=== PATIENT | female | born 1965 | race Caucasian/White ===

== ENCOUNTER → 2019-10-05 14:41 | Outpatient (BNVA) | payer MEDICARE, MEDICAID, SELFPAY | PROVIDERS: Family Provider Nurse Practitioner; PCP Nurse Practitioner; Visit Provider Nurse Practitioner Family | DX: E11.9 Type 2 diabetes mellitus without complications (principal); E78.5 Hyperlipidemia, unspecified; F17.200 Nicotine dependence, unspecified, uncomplicated; I10 Essential (primary) hypertension; J98.01 Acute bronchospasm; R30.0 Dysuria; E78.2 Mixed hyperlipidemia | CPT/HCPCS: 80053; 80061; 81003; 84443; 85025 ==

== ENCOUNTER → 2019-10-12 15:31 | Outpatient (BNVA) | payer MEDICARE, MEDICAID, SELFPAY | PROVIDERS: Family Provider Nurse Practitioner; PCP Nurse Practitioner; Visit Provider Nurse Practitioner | DX: E11.9 Type 2 diabetes mellitus without complications (principal); Z79.890 Hormone replacement therapy; L98.9 Disorder of the skin and subcutaneous tissue, unspecified | CPT/HCPCS: 83036 ==

== ENCOUNTER → 2019-10-20 15:45 | Outpatient (BNVA) | payer MEDICARE, MEDICAID, SELFPAY | PROVIDERS: Family Provider Nurse Practitioner; PCP Nurse Practitioner; Visit Provider Nurse Practitioner Psychiatric/Mental Health | DX: F33.2 Major depressive disorder, recurrent severe without psychotic features (principal); F41.0 Panic disorder [episodic paroxysmal anxiety]; F41.1 Generalized anxiety disorder | CPT/HCPCS: 99213 ==

== ENCOUNTER → 2020-01-08 08:33 | Outpatient (BNVA) | payer MEDICARE, MEDICAID, SELFPAY | PROVIDERS: Family Provider Nurse Practitioner; PCP Nurse Practitioner; Visit Provider Nurse Practitioner Psychiatric/Mental Health | DX: F33.2 Major depressive disorder, recurrent severe without psychotic features (principal); F41.0 Panic disorder [episodic paroxysmal anxiety]; F41.1 Generalized anxiety disorder | CPT/HCPCS: 99213 ==

== ENCOUNTER → 2020-02-09 12:04 | Outpatient (BNVA) | payer MEDICARE, MEDICAID, SELFPAY | PROVIDERS: Family Provider Nurse Practitioner; PCP Nurse Practitioner; Visit Provider Nurse Practitioner | DX: E11.9 Type 2 diabetes mellitus without complications (principal); I10 Essential (primary) hypertension; E78.5 Hyperlipidemia, unspecified | CPT/HCPCS: 80053; 80061; 82044; 83036 ==

== ENCOUNTER → 2020-04-10 10:51 | Outpatient (BNVA) | payer MEDICARE, MEDICAID, SELFPAY | PROVIDERS: Family Provider Nurse Practitioner; PCP Nurse Practitioner; Visit Provider Nurse Practitioner | DX: E66.01 Morbid (severe) obesity due to excess calories (principal); E11.65 Type 2 diabetes mellitus with hyperglycemia; I10 Essential (primary) hypertension; E78.5 Hyperlipidemia, unspecified; E78.2 Mixed hyperlipidemia; Z68.41 Body mass index [BMI] 40.0-44.9, adult; F17.211 Nicotine dependence, cigarettes, in remission | CPT/HCPCS: 80053; 83036 ==

== ENCOUNTER → 2020-04-23 09:20 | Outpatient (BNVA) | payer MEDICARE, MEDICAID, SELFPAY | PROVIDERS: Family Provider Nurse Practitioner; PCP Nurse Practitioner; Visit Provider Nurse Practitioner Psychiatric/Mental Health | DX: F33.2 Major depressive disorder, recurrent severe without psychotic features (principal); F41.0 Panic disorder [episodic paroxysmal anxiety]; F41.1 Generalized anxiety disorder | CPT/HCPCS: 99213 ==

== ENCOUNTER → 2020-06-20 07:25 | Outpatient (BNVA) | payer MEDICARE, MEDICAID, SELFPAY | PROVIDERS: Family Provider Nurse Practitioner; PCP Nurse Practitioner; Visit Provider Nurse Practitioner Psychiatric/Mental Health | DX: F33.2 Major depressive disorder, recurrent severe without psychotic features (principal); F41.0 Panic disorder [episodic paroxysmal anxiety]; F41.1 Generalized anxiety disorder | CPT/HCPCS: 99213 ==

== ENCOUNTER → 2020-07-02 15:15 | Outpatient (BNVA) | payer MEDICARE, MEDICAID, SELFPAY | PROVIDERS: Family Provider Nurse Practitioner; PCP Nurse Practitioner; Visit Provider Nurse Practitioner | DX: E11.65 Type 2 diabetes mellitus with hyperglycemia (principal); J98.01 Acute bronchospasm; E78.2 Mixed hyperlipidemia; R00.2 Palpitations; E66.01 Morbid (severe) obesity due to excess calories | CPT/HCPCS: 80053; 80061; 83036; 84443 ==

== ENCOUNTER → 2020-08-07 14:32 | Outpatient (BNVA) | payer MEDICARE, MEDICAID, SELFPAY | PROVIDERS: Family Provider Nurse Practitioner; PCP Nurse Practitioner; Visit Provider Nurse Practitioner Family | DX: Z20.828 Contact with and (suspected) exposure to other viral communicable diseases (principal) | CPT/HCPCS: 87635 ==

== ENCOUNTER → 2020-09-16 14:08 | Outpatient (BNVA) | payer MEDICARE, MEDICAID, SELFPAY | PROVIDERS: Family Provider Nurse Practitioner; PCP Nurse Practitioner; Visit Provider Nurse Practitioner | DX: E11.65 Type 2 diabetes mellitus with hyperglycemia (principal); J98.01 Acute bronchospasm; E78.2 Mixed hyperlipidemia; I10 Essential (primary) hypertension; R00.2 Palpitations; E66.01 Morbid (severe) obesity due to excess calories | CPT/HCPCS: 80053; 81000; 83036; 85025 ==

== ENCOUNTER → 2020-10-01 09:40 | Outpatient (BNVA) | payer MEDICARE, MEDICAID, SELFPAY | PROVIDERS: Family Provider Nurse Practitioner; PCP Nurse Practitioner; Visit Provider Nurse Practitioner Psychiatric/Mental Health | DX: F33.2 Major depressive disorder, recurrent severe without psychotic features (principal); F41.0 Panic disorder [episodic paroxysmal anxiety]; F41.1 Generalized anxiety disorder | CPT/HCPCS: 99214 ==

== ENCOUNTER → 2021-01-01 11:35 | Outpatient (BNVA) | payer MEDICARE, MEDICAID, SELFPAY | PROVIDERS: Family Provider Nurse Practitioner; PCP Nurse Practitioner; Visit Provider Nurse Practitioner | DX: E11.65 Type 2 diabetes mellitus with hyperglycemia (principal); E78.2 Mixed hyperlipidemia; I10 Essential (primary) hypertension; M77.8 Other enthesopathies, not elsewhere classified | CPT/HCPCS: 73030; 80053; 80061; 83036; 85025 ==

== ENCOUNTER → 2021-02-17 08:37 | Outpatient (BNVA) | payer MEDICARE, MEDICAID, SELFPAY | PROVIDERS: Family Provider Nurse Practitioner; PCP Nurse Practitioner; Visit Provider Specialist | DX: M25.511 Pain in right shoulder (principal); M77.8 Other enthesopathies, not elsewhere classified | CPT/HCPCS: 73030 ==

== ENCOUNTER → 2021-02-25 07:22 | Outpatient (BNVA) | payer MEDICARE, MEDICAID, SELFPAY | PROVIDERS: Family Provider Nurse Practitioner; PCP Nurse Practitioner; Visit Provider Nurse Practitioner Psychiatric/Mental Health | DX: F33.2 Major depressive disorder, recurrent severe without psychotic features (principal); F41.0 Panic disorder [episodic paroxysmal anxiety]; F41.1 Generalized anxiety disorder | CPT/HCPCS: 99214 ==

== ENCOUNTER 2021-02-27 16:49 | Outpatient (CLI) | payer MEDICARE, MEDICAID, SELFPAY ==
--- NOTE | 2021-02-27 17:30 | MR_ITS ---
WS: [id number] MRI RIGHT SHOULDER HISTORY: M19.011 - Primary osteoarthritis, right shoulder COMPARISON: Radiographs 02/17/2021 TECHNIQUE: Multiplanar sequences of the shoulder joint are submitted. Severe AC joint arthritis. Significant osteophytosis and hypertrophic bone formation from the clavicl e and AC joint. There is an osteophyte with significant encroachment upon the anterior supraspinatus muscle causing deformity. Small amount increased signal through the AC ligament. Small amount of flui d in the subacromial and subdeltoid bursa. No os acromion. Biceps tendon remains in normal position w ith very slight increased amount of fluid within the tendon sheath. Mild atrophy without edema involving the supraspinatus muscle. Moderate-sized insertion site tear inv olving the anterior most supraspinatus tendon near the rotator cuff interval. There is additional ten dinopathy. Surface of the supraspinatus tendon is frayed along the bursal and articular surfaces. Infraspinatus and subscapularis tendons are intact. Mild narrowing of the glenohumeral joint. Loss of cartilage involving the glenoid. Additional cortica l irregularity and loss of cartilage over the humeral head. Intrasubstance degeneration and fraying i nvolving the superior labrum. MR/MR shoulder RT wo con* [id number] IMPRESSION: 1. Severe AC joint arthritis with osteophyte and soft tissue encroachment and displacement upon the supraspinatus muscle and tendon. 2. Mild supraspinatus atrophy without edema. 3. Insertion site tear of the supraspinatus muscle with additional tendinopath y. Tear is along the anterior most supraspinatus tendon and may extend into the rotator cuff interval. 4. Loss of cartilage and cortical irregularity involving the humeral head and glenoid.
== END 2021-02-27 16:50 | disposition home or self-care (01) ==
LOC: RADSHAW 16:56
PROVIDERS: PCP Nurse Practitioner; Visit Provider Specialist
DX: M19.011 Primary osteoarthritis, right shoulder (principal); M25.711 Osteophyte, right shoulder; M75.101 Unspecified rotator cuff tear or rupture of right shoulder, not specified as traumatic
CPT/HCPCS: 73221

== ENCOUNTER → 2021-03-24 14:39 | Outpatient (BNVA) | payer MEDICARE, MEDICAID, SELFPAY | PROVIDERS: PCP Nurse Practitioner; Visit Provider Nurse Practitioner | DX: R82.90 Unspecified abnormal findings in urine (principal); E66.9 Obesity, unspecified; Z11.3 Encounter for screening for infections with a predominantly sexual mode of transmission | CPT/HCPCS: 81000; 87086; 87491; 87591 ==

== ENCOUNTER → 2021-04-07 14:56 | Outpatient (BNVA) | payer MEDICARE, MEDICAID, SELFPAY | PROVIDERS: PCP Nurse Practitioner; Visit Provider Obstetrics & Gynecology | DX: Z12.4 Encounter for screening for malignant neoplasm of cervix (principal); R19.09 Other intra-abdominal and pelvic swelling, mass and lump; N81.4 Uterovaginal prolapse, unspecified | CPT/HCPCS: 88175 ==

== ENCOUNTER → 2021-04-08 10:13 | Outpatient (BNVA) | payer MEDICARE, MEDICAID, SELFPAY | PROVIDERS: PCP Nurse Practitioner; Visit Provider Specialist | DX: R20.0 Anesthesia of skin (principal); R20.2 Paresthesia of skin; Z87.891 Personal history of nicotine dependence | CPT/HCPCS: 95908 ==

== ENCOUNTER 2021-04-09 12:19 | Outpatient (CLI) | payer MEDICARE, MEDICAID, SELFPAY ==
--- NOTE | 2021-04-09 12:45 | US_ITS ---
WS: [id number] ULTRASOUND SOFT TISSUES LEFT groin HISTORY: R19.09 - Other intra-abdominal and pelvic swelling, mass ... COMPARISON: None available. TECHNIQUE: 2-D and color Doppler imaging is submitted. Palpable area in the LEFT groin corresponds to marked decreased echogenic nodules. There are 2 adjace nt anechoic nodules with the largest measuring 0.9 x 0.6 x 0.8 cm. No through-transmission but there is also no increased vascularity. These could be cystic changes within an abnormal lymph node. US/US soft tissue/extremity [id number] IMPRESSION: Abnormal cystic structures in the LEFT groin correspond to palpable abnormaliti es. These are not normal lymph nodes. Recommend follow-up CT of the abdomen and pelvis with IV and oral contrast to further evaluate and characterize these pa lpable abnormalities.
== END 2021-04-09 12:20 | disposition home or self-care (01) ==
PROVIDERS: PCP Nurse Practitioner; Visit Provider Obstetrics & Gynecology
DX: R19.09 Other intra-abdominal and pelvic swelling, mass and lump (principal)
CPT/HCPCS: 76882

== ENCOUNTER → 2021-04-16 13:06 | Outpatient (BNVA) | payer MEDICARE, MEDICAID, SELFPAY | PROVIDERS: PCP Nurse Practitioner; Visit Provider Obstetrics & Gynecology | DX: N94.10 Unspecified dyspareunia (principal) | CPT/HCPCS: 76830 ==

== ENCOUNTER 2021-04-17 06:00 | Outpatient (RCR) | payer MEDICARE, MEDICAID, SELFPAY | END 2021-05-06 23:59 | disposition home or self-care (01) | LOC: TPT 06:00 | PROVIDERS: PCP Nurse Practitioner; Referring Provider Specialist; Visit Provider Specialist | DX: M25.511 Pain in right shoulder (principal) | CPT/HCPCS: 97110; 97140; 97162 ==

== ENCOUNTER 2021-04-28 08:20 | Outpatient (CLI) | payer MEDICARE, MEDICAID, SELFPAY ==
[2021-04-28] MEDS: iohexol 300 mg/mL 50 mL Btl PO (09:17)
--- NOTE | 2021-04-28 09:30 | CT_ITS ---
WS: [id number] CT ABDOMEN AND PELVIS WITH CONTRAST HISTORY: Abdominal pain and cramping. TECHNIQUE: Imaging performed of the abdomen and pelvis with IV contrast. Single phase imaging of the abdomen. Coronal and sagittal reformats are submitted. All CT scans at [facility] use at least one of these dose optimization techniques: automated exposure control; mA and/or kV adjustment per patient size (includes targeted exams where dose is matched to clinical indication); or iterativ e reconstruction. IV CONTRAST: Visipaque 320; 95 mL IV. Oral contrast: Yes. DLP: 1058.35 mGycm COMPARISON: None available. Lower thorax: Lung bases are clear. Heart is normal size. No hiatal hernia. Liver/biliary system: Mild hepatic steatosis. Very slight nodularity along the surface of the liver. No bile duct dilatation. Normal portal vein. Gallbladder: Status post cholecystectomy. Pancreas: Mild diffuse atrophy of the pancreas. No adjacent inflammation. Normal size pancreatic duct . Spleen: Normal size spleen. No mass or infarct. Adrenal glands: Normal. Right kidney: Normal. Left kidney: Prior nephrectomy. Aorta: Mild atherosclerosis with no aneurysm. Lymphadenopathy: None. Free fluid: None. GI tract: Prior appendectomy. No GI tract obstruction. Abdominal wall: Degenerative dystrophic calcifications in the subcutaneous soft tissues of the anteri or pelvis. Pelvis: Uterus is midline. Uterus is small. Atrophic ovaries. No adnexal masses or free fluid. Urinar y bladder is negative. Bones: Mild LEFT curvature lumbar spine. No osteoblastic or osteolytic disease. CT/CT abdomen pelvis w con* [id number] IMPRESSION: 1. No acute abdominal or pelvic abnormalities. 2. Prior cholecystectomy and appendectomy. 3. Mild hepatic steatosis with changes suspicious for early cirrhosis. 4. Prior LEFT nephrectomy. 5. Mildly atrophic uterus and ovaries. No pelvic abnormalities.
[2021-04-28] MEDS: iodixanol 320 mg/mL 100mL Btl IV (10:29)
== END 2021-04-28 08:21 | disposition home or self-care (01) ==
PROVIDERS: PCP Nurse Practitioner; Visit Provider Obstetrics & Gynecology
DX: R19.09 Other intra-abdominal and pelvic swelling, mass and lump (principal); R10.9 Unspecified abdominal pain; R25.2 Cramp and spasm; Z90.5 Acquired absence of kidney; K76.0 Fatty (change of) liver, not elsewhere classified; Z90.49 Acquired absence of other specified parts of digestive tract; Q42.8 Congenital absence, atresia and stenosis of other parts of large intestine; N85.8 Other specified noninflammatory disorders of uterus
CPT/HCPCS: 74177; Q9967

== ENCOUNTER 2021-05-07 06:00 | Outpatient (RCR) | payer MEDICARE, MEDICAID, SELFPAY | END 2021-06-05 23:59 | disposition home or self-care (01) | LOC: TPT 06:00 | PROVIDERS: PCP Nurse Practitioner; Referring Provider Specialist; Visit Provider Specialist | DX: M25.511 Pain in right shoulder (principal) | CPT/HCPCS: 97110 ==

== ENCOUNTER → 2021-05-08 13:22 | Outpatient (BNVA) | payer MEDICARE, MEDICAID, SELFPAY | PROVIDERS: PCP Nurse Practitioner; Visit Provider Obstetrics & Gynecology | DX: N81.4 Uterovaginal prolapse, unspecified (principal); R10.2 Pelvic and perineal pain | CPT/HCPCS: 87635 ==

== ENCOUNTER 2021-05-13 08:11 | Observation (INO) | payer MEDICARE, MEDICAID, SELFPAY ==
[2021-05-09 11:04] VITALS: BMI 35.6
--- NOTE | 2021-05-09 11:26 | ANES.PREANE2 ---
Pre-Anesthetic Assessment Pre-Anesthetic Assessment: Height/Weight: Height 1.57 m Weight 88.451 kg Preop Diagnosis: dyspaeunia Proposed Procedure: Operation Date: 05/13/21 07:00 Proposed Procedures p Total Vaginal Hysterectomy 12649 N81.4 R10.2(Not Applicable) - Margaret Lay MD s Salpingo-Oophorectomy (Vaginal)(Not Applicable) - Margaret Lay MD Familial anesthetic complications: none Social: Social History: Tobacco and No alcohol Exam: Pre-Anes Outpt Exam: alert, oriented x 3, clear to auscultation bilaterally and regular rate & rhythm Airway: Cervical ROM: WNL MP: 2 Dentition: False Pulmonary: Pulmonary: Sleep apnea (cpap) CV/HEM: Comments: tachycardia : : Chronic renal Insufficiency Hepatic: Comments: fatty liver Metabolic: Metabolic: DM and Hyperlipidemia Anesthetic Plan: ASA status: 3 Anesthesia: General Risk of > 500 ml blood loss (7ml/kg in children): No PFSH Anesthesia PFSH: Medical History Chronic migraine CKD stage 3 secondary to diabetes Controlled diabetes mellitus with hyperglycemia, without long-term current use of insulin Current smoker Enrolled in chronic care management Essential hypertension Generalized anxiety disorder Heart palpitations Hyperlipemia Major depressive disorder, recurrent severe without psychotic features Obesity (BMI 30-39.9) Panic disorder Vitamin D deficiency Surgical History History of appendectomy History of cholecystectomy History of nephrectomy left History of oophorectomy on right History of tonsillectomy and adenoidectomy History of tubal ligation Family History Father Cancer colon Diabetes Hyperlipidemia Hypertension Mother Bleeding disorder Hypertension Brother CAD (coronary artery disease) Diabetes Hypertension Brother Diabetes Hyperlipidemia Hypertension Denies family history of Chronic kidney disease (CKD) Stroke Social History Smoking and tobacco status: former smoker Second hand smoke exposure: No Smoking risk assessment/counseling performed?: No Alcohol intake: never Desire information about alcohol rehabilitation?: No Counseling given: No Desire information about substance/drug rehabilitation?: No Counseling given: No Adopted: No Caregiver/support person: No Lives independently: Yes Household members: significant other Housing: House Marital status: Number of children: 4 service: No Current occupational status: disabled History of recent travel: No Current gender identity: Female Data Anesthesia Cardiac Studies: No Data to Display
[2021-05-09 11:48] LABS: Basophils % 0.4 %; Eosinophils # 0.1 10^3/uL (0.0-0.8); Eosinophils % 2.9 %; Hematocrit 39.3 % (37.0-47.0); Hemoglobin 12.5 g/dL (11.5-15.3); Lymphocytes # 1.4 10^3/uL (0.8-4.8); Lymphocytes % 30.6 %; Mean Corpuscular HGB Conc 31.8 g/dL (30.0-36.0); Mean Corpuscular Hemoglobin 29.5 pg (28.0-34.0); Mean Corpuscular Volume 92.7 fl (81-99); Mean Platelet Volume 9.8 fL (7.4-10.4); Monocytes # 0.4 10^3/uL (0.2-0.9); Monocytes % 8.3 %; Neutrophils # 2.57 10^3/uL (1.8-7.7); Neutrophils % 57.4 %; Nucleated Red Blood Cells % 0 %; Platelet Count 143 10^3/cmm (130-400); Red Blood Count 4.24 10^6/uL (4.1-5.3); White Blood Count 4.5 10^3/uL (4.0-10.0)
[2021-05-09 12:23] LABS: Alanine Aminotransferase 21 U/L (0-33); Alkaline Phosphatase 82 IU/L (35-105); Anion Gap 14.1 (5-19); Aspartate Amino Transferase 20 U/L (0-32); Blood Urea Nitrogen 11 mg/dL (6-20); Calcium 9.3 mg/dL (8.5-10.5); Carbon Dioxide 26 mmol/L (22-29); Chloride 106 mmol/L (98-107); Globulin 2.7 g/dL (1.3-4.6); Glomerular Filtration Rate 57.6 mL/min (90-130); Glucose 96 mg/dL (65-115); Osmolality Calculated 293 mOsm/kg (285-295); Potassium 4.1 mmol/L (3.5-5.1); Sodium 142 mmol/L (136-145); Total Bilirubin 0.3 mg/dL (0.15-1.2); Total Protein 6.7 g/dL (6.6-8.7)
[2021-05-13] VITALS (19 sets, daily range): BP systolic 117–167; BP diastolic 55–103; PULSE 51–75; RESP 12–20; TEMP 36.5–36.8; O2SAT 92–99
[2021-05-13] MEDS: sodium chloride 0.9% 1,000 ML 30 ML IV (06:27)
[2021-05-13] MEDS: ondansetron 2 mg/ML SDV 2 mL 4 MG IVP ×2 (06:29→09:42)
[2021-05-13] MEDS: acetaminophen 1,000 MG/100 ML PIGGYBACK 400 MG IV (06:31)
[2021-05-13] MEDS: ketorolac 30 mg/mL INJ IVP ×3 (06:33→19:04)
[2021-05-13] MEDS: CELEcoxib 200 mg Capsule 400 MG PO (06:34)
[2021-05-13] MEDS: phenazopyridine 100 mg Tablet 200 MG PO (06:34)
[2021-05-13] MEDS: gabapentin 300 mg Capsule PO (06:34)
[2021-05-13 06:35] LABS: Glucose Point of Care 87 mg/dL (70-110)
[2021-05-13] MEDS: scopolamine 1.5 Patch 1 PATCH TRANSDERMA (06:36)
--- NOTE | 2021-05-13 06:39 | P.ANESUD_ITS ---
Pre-Anesthetic Update Pre-Anesthetic Assessment: Date of Surgery/Procedure: 05/13/21 Preop Renee gnosis: uterine prolapse, dyspareunia Proposed Procedure: Operation Date: 05/13/21 07:00 Proposed Procedures p Total Vaginal Hysterectomy 95396 N81.4 R10.2(Not Applicable) - Margaret Lay MD s Salpingo-Oophorectomy (Vaginal)(Not Applicable) - Margaret Lay MD Any changes to Pre-Anesthetic Assessment?: No Labs Last 48hrs: Laboratory Results - last 48 hr 05/13/21 06:24 POC Glucose 87 Exam: Pre-Anes Outpt Exam: alert, oriented x 3, clear to auscultation bilaterally and regular rate & rhythm Cardiac Studies: No Data to Display
--- NOTE | 2021-05-13 06:54 | W.PM.OPSUD ---
Surgery/Procedure H&P Update DATE OF PROCEDURE: May 13, 2021 DATE H&P PERFORMED: 05/08/21 H&P UPDATE INFORMATION: I have reviewed H&P completed within last 30 days, I have examined patient prior to procedure and No changes to prior documentation PREOP DIAGNOSIS: uterine prolapse, dyspareunia PLANNED PROCEDURE: Operation Date: 05/13/21 07:00 Proposed Procedures p Total Vaginal Hysterectomy 91470 N81.4 R10.2(Not Applicable) - Margaret Lay MD s Salpingo-Oophorectomy (Vaginal)(Not Applicable) - Margaret Lay MD
[2021-05-13] MEDS: vasopressin 20 unit/mL INJ 4 UNIT INJECTION (07:53)
--- NOTE | 2021-05-13 08:43 | PM.OP ---
Operative Report Date of procedure: May 13, 2021 Pre-op Diagnosis: uterine prolapse, dyspareunia Post-op diagnosis: same Post-op Findings: normal appearing uterus, tubes and ovaries Procedure Done: TVH, BSO Specimens removed/disposition: uterus, bilateral fallopian tubes and ovaries Anesthesia: General Estimated blood loss (mL): 25 IV fluids (mL): 700 Urine output (mL): 50 Complications: none Findings: normal appearing uterus, tubes and ovaries with bowel adhesions to the uterine fundus Condition: stable Disposition: floor Brief History: The patient presented for pelvic pain and dyspareunia. She was found to have uterine prolapse. She decided to have surgery. Procedure: The patient was taken to the operating room where general anesthesia was administered and found to be adequate. She was prepped and draped in the normal sterile fashion in the dorsal lithotomy position in Aneesh stirrups. A Bender catheter was placed. A weighted speculum was placed into the vagina and the anterior and posterior lip of the cervix was grasped with a Goodwin tenaculum. 10 mL of dilute Pitressin was injected at the vesicovaginal junction. A circumferential incision was made at the vesicovaginal junction and the vaginal mucosa reflected cephalad. The posterior peritoneum was entered sharply with the Metzenbaum scissors and the long weighted speculum replaced. The anterior peritoneum was entered sharply with the metzenbaum scissors. Using the Ceasar clamps the uterosacral ligaments were clamped cut and suture-ligated. Then sequentially the uterine arteries and cardinal ligaments were clamped cut and suture-ligated. The utero-ovarian ligaments were clamped cut and suture-ligated bilaterally and the specimen was removed. The bilateral fallopian tubes and ovaries were visualized and found to be normal. Using a heany clamp, the bilateral infundibulopelvic ligaments were clamped, cut and suture ligated. The fallopian tubes and ovaries were removed bilaterally. The peritoneum was closed with a pursestring using 2-0 Vicryl. The vaginal cuff was closed with 0 Vicryl in a running locked pattern incorporating the uterosacral ligaments into the lateral aspects of the vaginal cuff. The Bender catheter was removed and the cystoscope advanced into the bladder. The patient was given pyridium in preop but there was no color to her urine. Methylene blue was given during the cuff closure. Spill was noted on the right only, as she has donated her left kidney. There were no injuries or deficits noted in the bladder. The cystoscope was removed and the Bender was replaced. Vaginal packing was placed for good hemostasis. She tolerated the procedure well. Sponge lap and needle counts were correct x3. She was taken to the recovery room in stable condition.
--- NOTE | 2021-05-13 08:46 | P.PCN_ITS ---
PACU note PACU note: VSS, Good respiratory effort, report to COMPRESSOR OPERATOR PORTABLE Post-Anesthesia Exam: awake
--- NOTE | 2021-05-13 08:46 | PM.PACU ---
PACU note PACU note: VSS, Good respiratory effort, report to MANAGER SPRING Post-Anesthesia Exam: awake
--- NOTE | 2021-05-13 08:50 | SUR.PHASEI ---
PT AWAKES EASILY TO VOICE , PT WITH GOOD RESP EFFORT, PT DENIES PAIN VSS PT DENIES NAUSEA, , DRESSING VAG PACKING MARIANO PAD D/I FOSTER TO DD WITH LT GREEN URINE NOTED TO TUBING NND BAG, VSS ABD SOFT,
[2021-05-13] MEDS: HYDROmorphone 1 mg/mL INJ 1 mL 1.5 MG IVP (09:30)
[2021-05-13] MEDS: HYDROcodone-acetaminophen 5-325 mg Tablet PO (09:32)
[2021-05-13] MEDS: CLONazepam 0.5 mg Tablet PO (10:20)
[2021-05-13] MEDS: lactated ringers 1,000 ML 125 ML IV ×2 (11:00→19:44)
[2021-05-13] MEDS: morphine 4 mg/mL SDV 1 mL 1 MG IVP ×2 (11:22→16:41)
[2021-05-13] MEDS: simethicone 80 mg Chew PO (14:23)
--- NOTE | 2021-05-13 15:35 | ANE.PACU2 ---
Inpatient post-anesthesia follow up: Airway intact: Yes Vital signs: Temperature 97.7 F Pulse Rate 53 Respiratory Rate 20 Blood Pressure 142/67 Pulse Oximetry 97 Oxygen Delivery Me thod Nasal Cannula Oxygen Flow Rate 2 Fraction of Inspir ed Oxygen Hydration adequate: Yes Nausea and vomiting: No Pain level: 2 Mental status: Baseline
[2021-05-13] MEDS: oxyCODONE-APAP 5-325 mg Tablet PO ×2 (15:55→21:57)
[2021-05-13] MEDS: docusate sodium 100 mg Capsule PO (19:06)
[2021-05-13] MEDS: quetiapine XR (24HR) 300 mg Tablet PO (20:49)
[2021-05-14] MEDS: simethicone 80 mg Chew PO (00:32)
[2021-05-14] MEDS: ketorolac 30 mg/mL INJ IVP (01:16)
[2021-05-14] MEDS: lactated ringers 1,000 ML 125 ML IV (05:00)
[2021-05-14 05:14] VITALS: BP 98/62; PULSE 72; RESP 16
[2021-05-14 05:15] LABS: Hematocrit 33.4 % (37.0-47.0); Hemoglobin 10.4 g/dL (11.5-15.3); Mean Corpuscular HGB Conc 31.1 g/dL (30.0-36.0); Mean Corpuscular Hemoglobin 29.8 pg (28.0-34.0); Mean Corpuscular Volume 95.7 fl (81-99); Mean Platelet Volume 9.7 fL (7.4-10.4); Platelet Count 106 10^3/cmm (130-400); Red Blood Count 3.49 10^6/uL (4.1-5.3); Red Cell Distribution Width 13.2 % (12.1-15.1); White Blood Count 6.8 10^3/uL (4.0-10.0)
--- NOTE | 2021-05-14 06:20 | PM.DCS ---
Discharge Providers Date of Admission: 05/13/21 08:11 Date of Discharge: May 14, 2021 Attending Provider at Admission: Margaret Lay MD Attending Provider at Discharge: Margaret Lay MD Primary Care Provider: MYRTLE Loco Diagnoses at Discharge Discharge Diagnosis (1) Postoperative state: Status: Acute Reason for Visit Reason for Visit: uterine prolaspe Hospital Course Hospital Course The patient was admitted for surgery. She did well postoperatively and was ready for discharge on day #1 Physical Exam Narrative: EXAM NARRATIVE: The patient is doing well this morning. I have removed her packing. She is ambulating. She has tolerated a regular diet and she is ready for discharge. Const: COMMON NORMALS: no acute distress, patient oriented x3, no limitations, alert and well nourished GENERAL APPEARANCE: cooperative, comfortable, well kempt and well developed ORIENTATION/CONSCIOUSNESS: Yes awake, Yes oriented to person, Yes oriented to place and Yes oriented to time Resp: COMMON NORMALS: normal respiratory effort EFFORT & INSPECTION: Yes able to speak in complete sentences GI: COMMON NORMALS: Soft to palpation and non-tender PALPATION: Yes Soft to palpation Extremity: COMMON NORMALS: no clubbing, cyanosis or edema and no calf tenderness Neuro: COMMON NORMALS: patient oriented x3 SENSORIUM/ORIENTATION: Yes alert, Yes oriented to person, Yes oriented to place and Yes oriented to time Psych: APPEARANCE: Yes well kempt Urinary Catheter Management^: Bender: Cath Placed During This Visit: yes Reason for Continuing Indwelling Catheter: Perioperative Use in Selected Surgeries Urinary Catheter Date of Insertion: 05/13/21 Urinary Catheter Time of Insertion: 07:33 Discharge Data Data Completed and Pending: Pending at discharge Category Date Time Status Urine Culture Rou beatriz Lab 05/13/21 07:33 Received Pathology: Surgic al [PTH] Routine Pth 05/13/21 08:23 Received Labs from last 24 hours 05/14/21 05/13/21 05:04 06:24 WBC 6.8 RBC 3.49 L Hgb 10.4 L Hct 33.4 L MCV 95.7 MCH 29.8 MCHC 31.1 RDW 13.2 Plt Count 106 L MPV 9.7 POC Glucose 87 Vitals: Last Vital Signs Temp 98.2 F 05/13/21 21:57 Pulse 72 05/14/21 05:14 Resp 16 05/14/21 05:14 BP 98/62 05/14/21 05:14 Pulse Ox 92 05/13/21 16:41 Discharge Plan Discharge Patient Disposition: Home Condition: Stable Prescriptions: New oxycodone-acetaminophen 5-325 mg Tablet 1 tab PO Q4H PRN (Reason: Moderate To Severe Pain) Qty: 30 RF: 0 Continued albuterol sulfate 90 mcg/actuation aerosol powdr breath activated 2 inh INHALATION DAILY PRN (Reason: shortness of breath or wheezing) 30 Days Qty: 1 RF: 2 clonazepam [Klonopin] 0.5 mg tablet 0.5 mg PO TID PRN (Reason: panic attacks) Qty: 90 RF: 3 quetiapine [Seroquel XR] 300 mg tablet extended release 24 hr 300 mg PO .7 pm Qty: 30 RF: 6 Digestive Probiotic 10 billion cell capsule 1 cap PO .Two Daily RF: 0 acetaminophen 500 mg tablet 1,000 mg PO BID PRN (Reason: fever or pain) RF: 0 cholecalciferol (vitamin D3) 50 mcg (2,000 unit) capsule 50 mcg PO BID RF: 0 vitamin E (dl, acetate) 400 unit capsule 400 unit PO DAILY RF: 0 atorvastatin [Lipitor] 10 mg tablet 10 mg PO DAILY 30 Days Qty: 30 RF: 2 metoprolol succinate [Toprol XL] 50 mg tablet extended release 24 hr 50 mg PO DAILY Qty: 30 RF: 2 polyethylene glycol 3350 17 gram/dose powder 17 g PO DAILY Qty: 510 RF: 2 Ozempic 0.25 mg or 0.5 mg(2 mg/1.5 mL) pen injector 0.5 mg SUBCUT .weekly Qty: 1.5 RF: 2 Contrave 8-90 mg tablet extended release 2 tab PO Q12H Qty: 120 RF: 0 Discharge Orders: Discharge Order (Routine); Ordered 05/14/21 Ordered By: Margaret Lay Patient Instructions: Opioid Safety Discharge Attestations Time Spent in Discharge Care*: less than 30 min Quality Metrics Clinical Quality Measures During this hospital stay, did patient experience: None Coding Level of Care Code Acute Chg FW DC note Diagnoses Postoperative state Z98.890
[2021-05-14 07:51] VITALS: RESP 17
[2021-05-14] MEDS: oxyCODONE-APAP 5-325 mg Tablet PO (07:51)
[2021-05-14 10:30] VITALS: BP 94/57; PULSE 75; RESP 16; TEMP 36.8
--- NOTE | 2021-05-16 18:11 | PC.RESP ---
SMOKING CESSATION INFORMATION SENT TO PATIENT.
== END 2021-05-14 10:45 | disposition home or self-care (01) ==
LOC: OBGYN 08:20
PROVIDERS: Admitting Provider Obstetrics & Gynecology; PCP Nurse Practitioner; Visit Provider Obstetrics & Gynecology
PROC: (CPT 58262; principal; 2021-05-13 07:00)
PROC: (CPT 58720; 2021-05-13 07:00)
PROC: 0TJB8ZZ Inspection of Bladder, Via Natural or Artificial Opening Endoscopic (ICD-10-PCS; CPT 52000; 2021-05-13 07:00)
DX: N81.4 Uterovaginal prolapse, unspecified (principal); E78.5 Hyperlipidemia, unspecified; G47.30 Sleep apnea, unspecified; F17.210 Nicotine dependence, cigarettes, uncomplicated; F33.9 Major depressive disorder, recurrent, unspecified; E55.9 Vitamin D deficiency, unspecified; E66.9 Obesity, unspecified; Z68.35 Body mass index [BMI] 35.0-35.9, adult; E11.22 Type 2 diabetes mellitus with diabetic chronic kidney disease; I12.9 Hypertensive chronic kidney disease with stage 1 through stage 4 chronic kidney disease, or unspecified chronic kidney disease; N18.30 Chronic kidney disease, stage 3 unspecified; Z87.891 Personal history of nicotine dependence
CPT/HCPCS: 58262; 36416; 80053; 82962; 85025; 85027; 87086; 88307; 96365; 96374; 96375; G0378; J0330; J0690; J1100; J1170; J1885; J2270; J2405; J2704; J3010; J3490; J7030; Q9968

== ENCOUNTER → 2021-05-22 09:58 | Outpatient (BNVA) | payer MEDICARE, MEDICAID, SELFPAY | PROVIDERS: PCP Nurse Practitioner; Visit Provider Obstetrics & Gynecology | DX: R39.9 Unspecified symptoms and signs involving the genitourinary system (principal); Z98.890 Other specified postprocedural states | CPT/HCPCS: 81000 ==

== ENCOUNTER → 2021-05-26 11:40 | Outpatient (BNVA) | payer MEDICARE, MEDICAID, SELFPAY | PROVIDERS: PCP Nurse Practitioner; Visit Provider Nurse Practitioner | DX: E11.65 Type 2 diabetes mellitus with hyperglycemia (principal); E78.2 Mixed hyperlipidemia; E66.9 Obesity, unspecified | CPT/HCPCS: 80053; 80061; 81000; 83036; 85025 ==

== ENCOUNTER → 2021-05-27 14:54 | Outpatient (BNVA) | payer MEDICARE, MEDICAID, SELFPAY | PROVIDERS: PCP Nurse Practitioner; Visit Provider Nurse Practitioner Psychiatric/Mental Health | DX: F33.2 Major depressive disorder, recurrent severe without psychotic features (principal); F41.0 Panic disorder [episodic paroxysmal anxiety]; F41.1 Generalized anxiety disorder | CPT/HCPCS: 99214 ==

== ENCOUNTER → 2021-07-03 14:48 | Outpatient (BNVA) | payer MEDICARE, MEDICAID, SELFPAY | PROVIDERS: PCP Nurse Practitioner; Visit Provider Nurse Practitioner Psychiatric/Mental Health | DX: F33.2 Major depressive disorder, recurrent severe without psychotic features (principal); F41.0 Panic disorder [episodic paroxysmal anxiety]; F41.1 Generalized anxiety disorder | CPT/HCPCS: 99214 ==

== ENCOUNTER 2021-07-18 14:17 | Outpatient (CLI) | payer MEDICARE, MEDICAID, SELFPAY ==
--- NOTE | 2021-07-18 14:28 | MM_ITS ---
WS: [id number] BILATERAL DIGITAL DIAGNOSTIC MAMMOGRAM MAMMOGRAPHY WITH CAD CLINICAL INFORMATION: N64.4 - Mastodynia. Right breast soreness. COMPARISON: TECHNIQUE: Bilateral CC, MLO, and ML views. FINDINGS: Scattered fibroglandular densities bilaterally. Punctate and lucent centered calcifications. Dystroph ic calcification outer left breast posterior depth. Biopsy clip right breast. Palpable marker upper o uter right breast. No visualized underlying mammographic abnormalities. No suspicious focal mass, asymmetry, calcifications, or architectural distortion. Ultrasound is pendi ng. ULTRASOUND BREAST RIGHT TECHNIQUE: Ultrasound right breast focused area of concern. CLINICAL INFORMATION: N64.4 - Mastodynia FINDINGS: Ultrasound right breast the areas of interest at the 10:00 position and 12:00 position. Normal underl coral parenchymal tissue. No cystic or solid lesions. No lesions to target for biopsy. Recommend retur n to annual screening mammography. MM/[place] [id number] IMPRESSION: BI-RADS: 2-Benign FOLLOW UP: 1 Year Follow-up Recommend return to annual screening mammography.
== END 2021-07-18 14:18 | disposition home or self-care (01) ==
LOC: RADSHAW 14:22
PROVIDERS: PCP Nurse Practitioner; Visit Provider Obstetrics & Gynecology
DX: N64.4 Mastodynia (principal)
CPT/HCPCS: 76642; 77066

== ENCOUNTER → 2021-08-14 08:49 | Outpatient (BNVA) | payer MEDICARE, MEDICAID, SELFPAY | PROVIDERS: PCP Nurse Practitioner; Visit Provider Nurse Practitioner Psychiatric/Mental Health | DX: F33.2 Major depressive disorder, recurrent severe without psychotic features (principal); F41.0 Panic disorder [episodic paroxysmal anxiety]; F41.1 Generalized anxiety disorder | CPT/HCPCS: 87635; 99214 ==

== ENCOUNTER → 2021-08-21 14:49 | Outpatient (BNVA) | payer MEDICARE, MEDICAID, SELFPAY | PROVIDERS: PCP Nurse Practitioner; Visit Provider Nurse Practitioner | DX: E11.65 Type 2 diabetes mellitus with hyperglycemia (principal); E78.2 Mixed hyperlipidemia | CPT/HCPCS: 80053; 80061; 81000; 81003; 83036; 87077; 87086; 87184 ==

== ENCOUNTER → 2021-09-15 11:57 | Outpatient (BNVA) | payer MEDICARE, MEDICAID, SELFPAY | PROVIDERS: PCP Nurse Practitioner; Visit Provider Nurse Practitioner | DX: R19.5 Other fecal abnormalities (principal) | CPT/HCPCS: 85025 ==

== ENCOUNTER → 2021-12-01 08:48 | Outpatient (BNVA) | payer MEDICARE, MEDICAID, SELFPAY | PROVIDERS: PCP Nurse Practitioner; Visit Provider Surgery | DX: Z01.812 Encounter for preprocedural laboratory examination (principal); Z20.822 Contact with and (suspected) exposure to COVID-19; E11.65 Type 2 diabetes mellitus with hyperglycemia; Z11.52 Encounter for screening for COVID-19 | CPT/HCPCS: 80053; 80061; 83036; 84443; 85025; 87635 ==

== ENCOUNTER 2021-12-04 09:21 | Day surgery (SDC) | payer MEDICARE, MEDICAID, SELFPAY ==
[2021-12-02 11:09] VITALS: BMI 36.0
--- NOTE | 2021-12-04 09:34 | P.ANESASSM_ITS ---
Pre-Anesthetic Assessment Height/Weight: Height 1.57 m Weight 89.358 kg Preop Diagnosis: uterine prolapse, dyspareunia Operation Date: 12/04/21 11:00 Proposed Procedures p EGD 98554/k62.5/70660/R11.10(Not Applicable) - Zeke Perera MD s Colonoscopy(Not Applicable) - Zeke Perera MD Familial anesthetic complications: None Was Beta Margaret taken within 24 hours: Yes Was Clonidine taken within 24 hours: N/A Social Tobacco and No alcohol Exam alert, oriented x 3 and regular rate & rhythm Airway Submandibular: within normal limits Cervical ROM: within normal limits Mallampati: Class II Pulmonary Chronic Obstructive Pulmonary Disease CV/HEM Hypertension Chronic Renal Insufficiency Metabolic Diabetes Mellitus, Hyperlipidemia and Morbid Obesity Neuropsych Anxiety and Depression Anesthetic Plan ASA status: 3 Anesthesia: MAC Risk of > 500 ml blood loss (7ml/kg in children): No Medications/Allergies Home Medications Medication Instructions Recorded Confirmed Last Taken Type Lactobacillus 1 cap PO .Two Daily cap 09/15/19 12/02/21 05/12/21 History acidophilus-Bifidobac.animalis 10 billion cell capsule (Digestive Probiotic) acetaminophen 500 mg tablet 1,000 mg PO BID PRN tab 09/15/19 12/02/21 05/12/21 History cholecalciferol (vitamin D3) 50 50 mcg PO BID cap 09/15/19 12/02/21 05/12/21 History mcg (2,000 unit) capsule vitamin E (dl, acetate) 180 mg 400 unit PO DAILY cap 09/15/19 12/02/21 05/12/21 History (400 unit) capsule polyethylene glycol 3350 17 17 g PO DAILY #510 g 05/27/21 12/02/21 Unknown Rx gram/dose oral powder clonazepam 0.5 mg tablet (Klonopin) 0.5 mg PO TID PRN #90 tab 07/03/21 12/02/21 Unknown Rx quetiapine 300 mg tablet,extended 300 mg PO .7 pm #30 tab 07/03/21 12/02/21 Unknown Rx release 24 hr (Seroquel XR) albuterol sulfate 90 mcg/actuation 2 inh INHALATION DAILY PRN 30 Days 07/04/21 12/02/21 Unknown Rx breath activated powder inhaler #1 each atorvastatin 10 mg tablet (Lipitor) 10 mg PO DAILY 30 Days #30 tab 08/27/21 12/02/21 Unknown Rx metoprolol succinate 50 mg 50 mg PO DAILY #30 tab 08/27/21 12/02/21 Unknown Rx tablet,extended release 24 hr (Toprol XL) naltrexone 8 mg-bupropion 90 mg 2 tab PO BID #120 tab 10/06/21 12/02/21 11/27/21 Rx tablet,extended release (Contrave) semaglutide (Ozempic) 0.5 mg (0.4 mL) SUBCUT .weekly 10/06/21 12/02/21 12/01/21 Rx #1.5 ml [id number]-kulv-lutein tablet 1 tab PO DAILY 12/02/21 12/02/21 Unknown History Allergies Allergy/AdvReac Type Severity Reaction Status Date / Time No Known Allergies Allergy Verified 10/03/21 08:24 [facility] Anesthesia Medical History Chronic migraine CKD stage 3 secondary to diabetes Controlled diabetes mellitus with hyperglycemia, without long-term current use of insulin Current smoker Enrolled in chronic care management Family history of colon cancer in father Generalized anxiety disorder Heart palpitations Hyperlipemia Major depressive disorder, recurrent severe without psychotic features Obesity (BMI 30-39.9) Panic disorder Psychiatric care Vitamin D deficiency Surgical History History of appendectomy History of cholecystectomy History of hysterectomy 05/13/2021 History of nephrectomy left History of oophorectomy on right History of tonsillectomy and adenoidectomy History of tubal ligation Family History Father Cancer colon Diabetes Hyperlipidemia Hypertension Mother Bleeding disorder Hypertension Brother CAD (coronary artery disease) Diabetes Hypertension Brother Diabetes Hyperlipidemia Hypertension Denies family history of Chronic kidney disease (CKD) Stroke Social History Smoking and tobacco status: current every day smoker Second hand smoke exposure: No Smoking risk assessment/counseling performed?: No Alcohol intake: never Desire information about alcohol rehabilitation?: No Counseling given: No Desire information about substance/drug rehabilitation?: No Counseling given: No Adopted: No Caregiver/support person: No Lives independently: Yes Household members: significant other Housing: House Marital status: Number of children: 4 service: No Current occupational status: disabled History of recent travel: No Current gender identity: Female Data Anesthesia Cardiac Studies: No Data to Display
[2021-12-04 09:59] VITALS: BP 133/85; PULSE 90; RESP 18; TEMP 37; O2SAT 94
--- NOTE | 2021-12-04 10:03 | W.PM.OPSFHP ---
Same Day Surgery H&P Indication for Procedure/HPI DATE OF PROCEDURE: December 04, 2021 CHIEF COMPLAINT/INDICATIONFOR SURGICAL PROCEDURE: blood in stool PREOP DIAGNOSIS: Blood in stool/Family history of colon cancer PLANNED PROCEDURE: Operation Date: 12/04/21 11:00 Proposed Procedures p EGD 87622/[id number]/R11.10(Not Applicable) - Zeke Perera MD s Colonoscopy(Not Applicable) - Zeke Perera MD 10/01/21 This is a pleasant 56 years old female patient presents to my practice with history of FOBT positive and history of blood in stool, gives history of colon polyps back in mid 2001 where she had a colonoscopy, patient reports also history of colon cancer in her father at age of 62, patient reports history of vomiting when she gets constipated. Also the patient is struggling with her obesity with a current weight of 193 pounds and a BMI of 35.3 with associated history of diabetes mellitus type 2.? Chronic kidney disease stage III, generalized anxiety disorder, panic disorder, major depressive disorder.? Hyperlipidemia and current smoker 12/04/21 Patient comes today for diagnostic EGD and colonoscopy ROS All systems have been all systems have been reviewed negative except as per the above or per problem list Medications/Allergies* Home Medications Medication Instructions Recorded Confirmed Type Lactobacillus 1 cap PO .Two Daily cap 09/15/19 12/02/21 History acidophilus-Bifidobac.animalis 10 billion cell capsule (Digestive Probiotic) acetaminophen 500 mg tablet 1,000 mg PO BID PRN tab 09/15/19 12/02/21 History cholecalciferol (vitamin D3) 50 50 mcg PO BID cap 09/15/19 12/02/21 History mcg (2,000 unit) capsule vitamin E (dl, acetate) 180 mg 400 unit PO DAILY cap 09/15/19 12/02/21 History (400 unit) capsule ngrwyjgy-qjzsezg-awbs-lutein tablet 1 tab PO DAILY 12/02/21 12/02/21 History Allergies/Adverse Reactions Allergy/AdvReac Type Severity Reaction Status Date / Time No Known Allergies Allergy Verified 12/04/21 10:04 Pertinent History/Comorbid Conditions* Medical History (Updated 10/03/21 @ 08:29 by Zeke Perera MD) Chronic migraine CKD stage 3 secondary to diabetes Controlled diabetes mellitus with hyperglycemia, without long-term current use of insulin Current smoker Enrolled in chronic care management Family history of colon cancer in father Generalized anxiety disorder Heart palpitations Hyperlipemia Major depressive disorder, recurrent severe without psychotic features Obesity (BMI 30-39.9) Panic disorder Psychiatric care Vitamin D deficiency Surgical History (Updated 09/17/21 @ 19:44 by MARLENI Loco-C) History of appendectomy History of cholecystectomy History of hysterectomy 05/13/2021 History of nephrectomy left History of oophorectomy on right History of tonsillectomy and adenoidectomy History of tubal ligation Family History (Updated 04/07/21 @ 14:27 by Geovanna Cherry LPN) Diabetes Father Brother Brother CAD (coronary artery disease) Brother Hyperlipidemia Father Brother Bleeding disorder Mother Cancer Father colon Hypertension Father Mother Brother Brother Denies family history of Chronic kidney disease (CKD) Stroke Social History Smoking and tobacco status: current every day smoker Second hand smoke exposure: No Smoking risk assessment/counseling performed?: No Alcohol intake: never Desire information about alcohol rehabilitation?: No Counseling given: No Desire information about substance/drug rehabilitation?: No Counseling given: No Adopted: No Caregiver/support person: No Lives independently: Yes Household members: significant other Housing: House Marital status: Number of children: 4 service: No Current occupational status: disabled History of recent travel: No Current gender identity: Female Pertinent Exam Findings alert, oriented x 3, regular rate & rhythm and procedure specific exam findings (Abdominal examination nontender nondistended soft) Recommendations Surgery/Procedure today ( EGD and colonoscopy) Coding Level of Care Code Acute Video Game Technician for Joe iWll
[2021-12-04] MEDS: sodium chloride 0.9% 1,000 ML 30 ML IV (10:20)
[2021-12-04 12:26] VITALS: BP 101/73; PULSE 84; RESP 16; O2SAT 98
[2021-12-04 12:44] VITALS: BP 104/73; PULSE 84; RESP 16; O2SAT 94
--- NOTE | 2021-12-04 14:30 | ANE.PACU2 ---
Inpatient post-anesthesia follow up: Airway intact: Yes Vital signs: Temperature 98.6 F Pulse Rate 84 Respiratory Rate 16 Blood Pressure 104/73 Pulse Oximetry 94 Oxygen Delivery Me thod Room Air Oxygen Flow Rate Fraction of Inspir ed Oxygen Hydration adequate: Yes Nausea and vomiting: No Pain level: 1 Mental status: Baseline
== END 2021-12-04 12:50 | disposition home or self-care (01) ==
PROVIDERS: PCP Nurse Practitioner; Visit Provider Surgery
PROC: 0DJ08ZZ Inspection of Upper Intestinal Tract, Via Natural or Artificial Opening Endoscopic (ICD-10-PCS; CPT 43235; principal; 2021-12-04 11:00)
PROC: 0DJD8ZZ Inspection of Lower Intestinal Tract, Via Natural or Artificial Opening Endoscopic (ICD-10-PCS; CPT 45378; 2021-12-04 11:00)
DX: K92.1 Melena (principal); Z80.0 Family history of malignant neoplasm of digestive organs; K21.00 Gastro-esophageal reflux disease with esophagitis, without bleeding; K29.70 Gastritis, unspecified, without bleeding; E66.9 Obesity, unspecified; Z68.36 Body mass index [BMI] 36.0-36.9, adult; F41.9 Anxiety disorder, unspecified; F32.9 Major depressive disorder, single episode, unspecified; E78.5 Hyperlipidemia, unspecified; F17.210 Nicotine dependence, cigarettes, uncomplicated; E11.22 Type 2 diabetes mellitus with diabetic chronic kidney disease; I12.9 Hypertensive chronic kidney disease with stage 1 through stage 4 chronic kidney disease, or unspecified chronic kidney disease; N18.30 Chronic kidney disease, stage 3 unspecified; E11.65 Type 2 diabetes mellitus with hyperglycemia; J44.9 Chronic obstructive pulmonary disease, unspecified
CPT/HCPCS: 43239; 45378; 88305; J2704; J7030

== ENCOUNTER → 2021-12-17 13:05 | Outpatient (BNVA) | payer MEDICARE, MEDICAID, SELFPAY | PROVIDERS: PCP Nurse Practitioner; Visit Provider Surgery | DX: K21.9 Gastro-esophageal reflux disease without esophagitis (principal); Z86.010 Personal history of colon polyps; E66.9 Obesity, unspecified; Z68.37 Body mass index [BMI] 37.0-37.9, adult; F17.210 Nicotine dependence, cigarettes, uncomplicated | CPT/HCPCS: 99213 ==

== ENCOUNTER → 2022-01-16 13:46 | Outpatient (BNVA) | payer MEDICARE, MEDICAID, SELFPAY | PROVIDERS: PCP Nurse Practitioner; Visit Provider Nurse Practitioner Psychiatric/Mental Health | DX: F33.2 Major depressive disorder, recurrent severe without psychotic features (principal); F41.0 Panic disorder [episodic paroxysmal anxiety]; F41.1 Generalized anxiety disorder | CPT/HCPCS: 99214 ==

== ENCOUNTER → 2022-03-05 10:54 | Outpatient (BNVA) | payer MEDICARE, MEDICAID, SELFPAY | PROVIDERS: PCP Nurse Practitioner; Visit Provider Nurse Practitioner Psychiatric/Mental Health | DX: F33.2 Major depressive disorder, recurrent severe without psychotic features (principal); F41.0 Panic disorder [episodic paroxysmal anxiety]; F41.1 Generalized anxiety disorder | CPT/HCPCS: 99214 ==

== ENCOUNTER → 2022-03-26 10:07 | Outpatient (BNVA) | payer MEDICARE, MEDICAID, SELFPAY | PROVIDERS: PCP Nurse Practitioner; Visit Provider Nurse Practitioner | DX: E11.65 Type 2 diabetes mellitus with hyperglycemia (principal) | CPT/HCPCS: 80053; 80061; 83036 ==

== ENCOUNTER 2022-05-15 05:21 | Day surgery (SDC) | payer MEDICARE, MEDICAID, SELFPAY ==
[2022-05-13 11:50] VITALS: BMI 35.3
[2022-05-15 06:19] VITALS: BP 156/85; PULSE 78; RESP 18; TEMP 36.6; O2SAT 95
--- NOTE | 2022-05-15 06:34 | W.PM.OPSFHP ---
Same Day Surgery H&P Indication for Procedure/HPI DATE OF PROCEDURE: May 15, 2022 CHIEF COMPLAINT/INDICATIONFOR SURGICAL PROCEDURE: I am here for colonoscopy PREOP DIAGNOSIS: Blood in stool/Family history of colon cancer PLANNED PROCEDURE: Operation Date: 05/15/22 07:30 Proposed Procedures p Colonoscopy [id number](Not Applicable) - Zeke Perera MD 10/01/2021 This is a pleasant 56 years old female patient presents to my practice with history of FOBT positive and history of blood in stool, gives history of colon polyps back in mid 2001 where she had a colonoscopy, patient reports also history of colon cancer in her father at age of 62, patient reports history of vomiting when she gets constipated. Also the patient is struggling with her obesity with a current weight of 193 pounds and a BMI of 35.3 with associated history of diabetes mellitus type 2.? Chronic kidney disease stage III, generalized anxiety disorder, panic disorder, major depressive disorder.? Hyperlipidemia and current smoker Interim history 05/15/2022 Patient comes today for repeat diagnostic colonoscopy as last colonoscopy patient had suboptimal colon prep and she was educated to have the colonoscopy repeated within a year ROS All systems have been reviewed negative except as for the above or per problem list. Medications/Allergies* Home Medications Medication Instructions Recorded Confirmed Type Lactobacillus 1 cap PO .Two Daily 09/15/19 05/13/22 History acidophilus-Bifidobac.animalis 10 billion cell capsule (Digestive Probiotic) acetaminophen 500 mg tablet 1,000 mg PO BID PRN fever or pain 09/15/19 05/13/22 History cholecalciferol (vitamin D3) 50 50 mcg PO BID 09/15/19 05/13/22 History mcg (2,000 unit) capsule vitamin E (dl, acetate) 180 mg 400 unit PO DAILY 09/15/19 05/13/22 History (400 unit) capsule bdvpvpmr-pjunwsq-nhvr-lutein tablet 1 tab PO DAILY 12/02/21 05/13/22 History bupropion HCl 150 mg 24 hr tablet, 150 mg PO DAILY 05/13/22 05/13/22 History extended release Allergies/Adverse Reactions Allergy/AdvReac Type Severity Reaction Status Date / Time No Known Allergies Allergy Verified 05/15/22 06:35 Pertinent History/Comorbid Conditions* Medical History (Updated 01/26/22 @ 15:01 by MYRTLE Loco) ADD (attention deficit disorder) Chronic migraine CKD stage 3 secondary to diabetes Controlled diabetes mellitus with hyperglycemia, without long-term current use of insulin Current smoker Enrolled in chronic care management Family history of colon cancer in father Generalized anxiety disorder Heart palpitations Hyperlipemia Major depressive disorder, recurrent severe without psychotic features Obesity (BMI 30-39.9) Panic disorder Psychiatric care Vitamin D deficiency Surgical History (Updated 04/10/22 @ 11:08 by MYRTLE Loco) History of appendectomy History of cholecystectomy History of fusion of cervical spine History of hysterectomy 05/13/2021 History of nephrectomy left History of oophorectomy on right History of tonsillectomy and adenoidectomy History of tubal ligation Family History (Updated 04/07/21 @ 14:27 by Geovanna Cherry LPN) Diabetes Father Brother Brother CAD (coronary artery disease) Brother Hyperlipidemia Father Brother Bleeding disorder Mother Cancer Father colon Hypertension Father Mother Brother Brother Denies family history of Chronic kidney disease (CKD) Stroke Social History Smoking and tobacco status: never smoked Second hand smoke exposure: No Smoking risk assessment/counseling performed?: No Alcohol intake: never Desire information about alcohol rehabilitation?: No Counseling given: No Desire information about substance/drug rehabilitation?: No Counseling given: No Adopted: No Caregiver/support person: No Lives independently: Yes Household members: significant other Housing: House Marital status: Number of children: 4 service: No Current occupational status: disabled History of recent travel: No Current gender identity: Female Pertinent Exam Findings alert, oriented x 3, regular rate & rhythm and procedure specific exam findings (Abdominal exam nontender nondistended soft) Recommendations Surgery/Procedure today (Colonoscopy with possible biopsy) Coding Level of Care Code Acute Electronic Gaming Device Supervisor for Joe Will
[2022-05-15] MEDS: sodium chloride 0.9% 1,000 ML 30 ML IV (06:37)
--- NOTE | 2022-05-15 07:02 | P.ANESASSM_ITS ---
Pre-Anesthetic Assessment Height/Weight: Height 1.57 m Weight 87.543 kg Temp Pulse Resp BP Pulse Ox O2 Del Method 97.9 F 78 18 156/85 95 05/15/22 06:19 05/15/22 06:19 05/15/22 06:19 05/15/22 06:19 05/15/22 06:19 05/15/22 06:19 Preop Diagnosis: FOBT Operation Date: 05/15/22 07:30 Proposed Procedures p Colonoscopy 12261/[id number](Not Applicable) - Zeke Perera MD Familial anesthetic complications: none Was Beta Margaret taken within 24 hours: Yes Was Clonidine taken within 24 hours: Yes Last intake: Intake Last Liquid Date 05/14/22 Last Liquid Time 21:30 Last Solid Date 05/13/22 Last Solid Time 21:00 Social Tobacco and No alcohol .25 pack pack(s) per day Exam alert, oriented x 3, clear to auscultation bilaterally and regular rate & rhythm Airway Cervical ROM: Other Mallampati: Class I Dentition: false Pulmonary Sleep Apnea inhaler for allergoes CV/HEM Hypertension Chronic Renal Insufficiency donated a kidney Hepatic None reported fatty liver disease GI Gastroesophageal Reflux Disease Metabolic Diabetes Mellitus and Hyperlipidemia [facility] [place] Osteoarthritis/DJD Neuropsych Anxiety, Bipolar and Depression Anesthetic Plan ASA status: 3 Anesthesia: MAC Risk of > 500 ml blood loss (7ml/kg in children): No Medications/Allergies Home Medications Medication Instructions Recorded Confirmed Last Taken Type Lactobacillus 1 cap PO .Two Daily 09/15/19 05/13/22 05/14/22 History acidophilus-Bifidobac.animalis 10 billion cell capsule (Digestive Probiotic) acetaminophen 500 mg tablet 1,000 mg PO BID PRN fever or pain 09/15/19 05/13/22 05/13/22 History cholecalciferol (vitamin D3) 50 50 mcg PO BID 09/15/19 05/13/22 05/13/22 History mcg (2,000 unit) capsule vitamin E (dl, acetate) 180 mg 400 unit PO DAILY 09/15/19 05/13/22 05/14/22 History (400 unit) capsule wwltwnlt-urqmzym-pgoz-lutein tablet 1 tab PO DAILY 12/02/21 05/13/22 05/14/22 History pantoprazole 40 mg tablet,delayed 40 mg PO DAILY 30 days #30 tabs 12/04/21 05/13/22 05/14/22 Rx release (Protonix) sucralfate 1 gram tablet (Carafate) 1 g PO Q6H 12 weeks #336 tabs 12/04/21 05/13/22 05/14/22 Rx clonazepam 0.5 mg tablet (Klonopin) 0.5 mg PO TID PRN panic attacks 01/16/22 05/13/22 05/14/22 Rx #90 tabs polyethylene glycol 3350 17 17 g PO DAILY #510 grams 01/26/22 05/13/22 05/13/22 Rx gram/dose oral powder quetiapine 300 mg tablet,extended 300 mg PO .7 pm #30 tabs 03/05/22 05/13/22 05/14/22 Rx release 24 hr (Seroquel XR) clonidine HCl 0.1 mg tablet 0.1 mg PO .at bedtime #30 tabs 04/10/22 05/13/22 05/14/22 Rx estradiol 0.5 mg tablet (Estrace) 0.5 mg PO DAILY #30 tabs 04/10/22 05/13/22 05/14/22 Rx metoprolol succinate 50 mg 50 mg PO DAILY #30 tabs 04/10/22 05/13/22 05/15/22 Rx tablet,extended release 24 hr (Toprol XL) albuterol sulfate 90 mcg/actuation See Rx Instructions .Route 05/03/22 05/13/22 05/14/22 Rx aerosol inhaler .COMPLEX #9 grams bupropion HCl 150 mg 24 hr tablet, 150 mg PO DAILY 05/13/22 05/13/22 05/14/22 History extended release peg 3350-electrolytes 236 240 ml PO Q10M #4,000 mL 05/13/22 05/14/22 05/15/22 Rx gram-22.74 gram-6.74 gram-5.86 gram solution (Golytely) semaglutide (Ozempic) 0.25 mg (0.2 mL) SUBCUT .weekly 05/13/22 05/14/22 05/14/22 Rx #1.5 mL Allergies Allergy/AdvReac Type Severity Reaction Status Date / Time No Known Allergies Allergy Verified 05/15/22 06:35 Current Medications Generic Name Dose Route Start Last Admin Trade Name Freq PRN Reason Stop Dose Admin Sodium Chloride 1,000 mls @ 30 mls/hr 05/15/22 06:00 05/15/22 06:37 Sodium Chloride 0.9% IV 05/16/22 05:59 30 mls/hr .Q24H DIPAK Administration PFSH Anesthesia Medical History ADD (attention deficit disorder) Chronic migraine CKD stage 3 secondary to diabetes Controlled diabetes mellitus with hyperglycemia, without long-term current use of insulin Current smoker Enrolled in chronic care management Family history of colon cancer in father Generalized anxiety disorder Heart palpitations Hyperlipemia Major depressive disorder, recurrent severe without psychotic features Obesity (BMI 30-39.9) Panic disorder Psychiatric care Vitamin D deficiency Surgical History History of appendectomy History of cholecystectomy History of fusion of cervical spine History of hysterectomy 05/13/2021 History of nephrectomy left History of oophorectomy on right History of tonsillectomy and adenoidectomy History of tubal ligation Family History Father Cancer colon Diabetes Hyperlipidemia Hypertension Mother Bleeding disorder Hypertension Brother CAD (coronary artery disease) Diabetes Hypertension Brother Diabetes Hyperlipidemia Hypertension Denies family history of Chronic kidney disease (CKD) Stroke Social History Smoking and tobacco status: never smoked Second hand smoke exposure: No Smoking risk assessment/counseling performed?: No Alcohol intake: never Desire information about alcohol rehabilitation?: No Counseling given: No Desire information about substance/drug rehabilitation?: No Counseling given: No Adopted: No Caregiver/support person: No Lives independently: Yes Household members: significant other Housing: House Marital status: Number of children: 4 service: No Current occupational status: disabled History of recent travel: No Current gender identity: Female Data Anesthesia Cardiac Studies: No Data to Display
[2022-05-15 08:08] VITALS: BP 127/79; PULSE 75; RESP 16; TEMP 36.3; O2SAT 97
--- NOTE | 2022-05-15 08:11 | ANE.PACU2 ---
Inpatient post-anesthesia follow up: Airway intact: Yes Vital signs: Temperature 97.9 F Pulse Rate 78 Respiratory Rate 18 Blood Pressure 156/85 Pulse Oximetry 95 Oxygen Delivery Me thod Room Air Oxygen Flow Rate Fraction of Inspir ed Oxygen Hydration adequate: Yes Nausea and vomiting: No Pain level: 1 Mental status: Baseline
[2022-05-15 08:21] VITALS: BP 134/77; PULSE 73; RESP 18; O2SAT 95
== END 2022-05-15 08:36 | disposition home or self-care (01) ==
PROVIDERS: PCP Nurse Practitioner; Visit Provider Surgery
PROC: 0DJD8ZZ Inspection of Lower Intestinal Tract, Via Natural or Artificial Opening Endoscopic (ICD-10-PCS; CPT 45330; 2022-05-15 07:30)
DX: Z86.010 Personal history of colon polyps (principal); Z80.0 Family history of malignant neoplasm of digestive organs; K92.1 Melena; E66.9 Obesity, unspecified; Z68.35 Body mass index [BMI] 35.0-35.9, adult; E11.22 Type 2 diabetes mellitus with diabetic chronic kidney disease; I12.9 Hypertensive chronic kidney disease with stage 1 through stage 4 chronic kidney disease, or unspecified chronic kidney disease; N18.30 Chronic kidney disease, stage 3 unspecified; F41.9 Anxiety disorder, unspecified; E78.5 Hyperlipidemia, unspecified; F17.210 Nicotine dependence, cigarettes, uncomplicated; G47.30 Sleep apnea, unspecified; K21.9 Gastro-esophageal reflux disease without esophagitis; E55.9 Vitamin D deficiency, unspecified
CPT/HCPCS: 45330; J2704; J7030

== ENCOUNTER → 2022-06-01 15:52 | Outpatient (BNVA) | payer MEDICARE, MEDICAID, SELFPAY | PROVIDERS: PCP Nurse Practitioner; Visit Provider Surgery | DX: Z09 Encounter for follow-up examination after completed treatment for conditions other than malignant neoplasm (principal); Z86.010 Personal history of colon polyps | CPT/HCPCS: 99212 ==

== ENCOUNTER → 2022-07-17 11:06 | Outpatient (BNVA) | payer MEDICARE, MEDICAID, SELFPAY | PROVIDERS: PCP Nurse Practitioner; Visit Provider Nurse Practitioner | DX: E11.65 Type 2 diabetes mellitus with hyperglycemia (principal); J98.01 Acute bronchospasm; F98.8 Other specified behavioral and emotional disorders with onset usually occurring in childhood and adolescence; Z79.890 Hormone replacement therapy; R00.2 Palpitations; Z23 Encounter for immunization | CPT/HCPCS: 81000 ==

== ENCOUNTER 2022-07-24 05:46 | Day surgery (SDC) | payer MEDICARE, MEDICAID, SELFPAY ==
[2022-07-22 11:49] VITALS: BMI 35.8
[2022-07-24 06:12] VITALS: BP 109/75; PULSE 81; RESP 18; TEMP 36.1; O2SAT 96
--- NOTE | 2022-07-24 06:15 | W.PM.OPSFHP ---
Same Day Surgery H&P Indication for Procedure/HPI DATE OF PROCEDURE: July 24, 2022 CHIEF COMPLAINT/INDICATIONFOR SURGICAL PROCEDURE: Coming today for colonoscopy PREOP DIAGNOSIS: History of colon polyps PLANNED PROCEDURE: Operation Date: 07/24/22 07:30 Proposed Procedures p Colonoscopy 09288,Z12.11(Not Applicable) - Zeke Perera MD 10/01/2021 This is a pleasant 56 years old female patient presents to my practice with history of FOBT positive and history of blood in stool, gives history of colon polyps back in mid 2001 where she had a colonoscopy, patient reports also history of colon cancer in her father at age of 62, patient reports history of vomiting when she gets constipated. Also the patient is struggling with her obesity with a current weight of 193 pounds and a BMI of 35.3 with associated history of diabetes mellitus type 2.? Chronic kidney disease stage III, generalized anxiety disorder, panic disorder, major depressive disorder.? Hyperlipidemia and current smoker 12/17/2021 This is a pleasant 56 years old female patient with a current weight of 206 pounds and a BMI of 38 with associated multiple medical comorbidities in the form of diabetes mellitus type 2.? History of colon polyps, numbness and tingling in right hand, dyspareunia, rotator cuff arthropathy of right shoulder, slow transit constipation, heart palpitations, chronic kidney disease stage III secondary to diabetes, generalized anxiety disorder, major depressive disorder recurrent severe without psychotic features, postmenopausal hormone therapy, hyperlipidemia and current smoker.? Patient also reports that she has obstructive sleep apnea related to obesity and she uses CPAP machine Obesity class III (equal or greater than 40). Diet history patient have tried before different recipes without obvious success and she has been on Contrave before. Medical treatment tried and failed including diet and exercise Previous Bariatric surgery not applicable Quality of life affected in a nonpositive way Patient has been struggling with weight and has tried different modalities without obvious success, patient comes today showing interest in Bariatric surgery as a sustained option for obesity management Recent EGD was done and showed reflux esophagitis and gastritis and a colonoscopy that the prep was inadequate and recommendation to repeat colonoscopy in 1 year 07/24/2022 Patient had an attempted colonoscopy on 05/15/2022 but unfortunately because of the poor prep the procedure was limited to flex sigmoidoscopy and patient was rescheduled for colonoscopy today. Patient has history of colon polyps. Patient reports that she had a better colon prep today. ROS All systems have been reviewed negative except as for the above or per problem list. Medications/Allergies* Home Medications Medication Instructions Recorded Confirmed Type Lactobacillus 1 cap PO .Two Daily 09/15/19 07/22/22 History acidophilus-Bifidobac.animalis 10 billion cell capsule (Digestive Probiotic) acetaminophen 500 mg tablet 1,000 mg PO BID PRN fever or pain 09/15/19 07/22/22 History cholecalciferol (vitamin D3) 50 50 mcg PO BID 09/15/19 07/22/22 History mcg (2,000 unit) capsule vitamin E (dl, acetate) 180 mg 400 unit PO DAILY 09/15/19 07/22/22 History (400 unit) capsule sqonilor-njuyorp-ilfo-lutein tablet 1 tab PO DAILY 12/02/21 07/22/22 History Allergies/Adverse Reactions Allergy/AdvReac Type Severity Reaction Status Date / Time No Known Allergies Allergy Verified 07/24/22 06:18 Pertinent History/Comorbid Conditions* Medical History (Updated 01/26/22 @ 15:01 by MYRTLE Loco) ADD (attention deficit disorder) Chronic migraine Cigarette nicotine dependence CKD stage 3 secondary to diabetes Controlled diabetes mellitus with hyperglycemia, without long-term current use of insulin Current smoker Enrolled in chronic care management Family history of colon cancer in father Generalized anxiety disorder Heart palpitations Hyperlipemia Major depressive disorder, recurrent severe without psychotic features Obesity (BMI 30-39.9) Panic disorder Psychiatric care Vitamin D deficiency Surgical History (Updated 04/10/22 @ 11:08 by MYRTLE Loco) History of appendectomy History of cholecystectomy History of fusion of cervical spine History of hysterectomy 05/13/2021 History of nephrectomy left History of oophorectomy on right History of tonsillectomy and adenoidectomy History of tubal ligation Family History (Updated 04/07/21 @ 14:27 by Geovanna Cherry LPN) Diabetes Father Brother Brother CAD (coronary artery disease) Brother Hyperlipidemia Father Brother Bleeding disorder Mother Cancer Father colon Hypertension Father Mother Brother Brother Denies family history of Chronic kidney disease (CKD) Stroke Social History Smoking and tobacco status: never smoked Second hand smoke exposure: No Smoking risk assessment/counseling performed?: No Alcohol intake: never Desire information about alcohol rehabilitation?: No Counseling given: No Desire information about substance/drug rehabilitation?: No Counseling given: No Adopted: No Caregiver/support person: No Lives independently: Yes Household members: significant other Housing: House Marital status: Number of children: 4 service: No Current occupational status: disabled History of recent travel: No Current gender identity: Female Pertinent Exam Findings alert, oriented x 3, regular rate & rhythm and procedure specific exam findings (Abdominal exam nontender nondistended soft) Recommendations Surgery/Procedure today (Colonoscopy with possible biopsy) Coding Level of Care Code Acute Smart Energy Specialist for Joe Will
[2022-07-24] MEDS: sodium chloride 0.9% 1,000 ML 30 ML IV (06:16)
[2022-07-24 06:17] LABS: Glucose Point of Care 89 mg/dL (70-110)
--- NOTE | 2022-07-24 06:51 | ANES.PREANE2 ---
Pre-Anesthetic Assessment Height/Weight: Height 1.57 m Weight 88.904 kg Temp Pulse Resp BP Pulse Ox O2 Del Method 97 F L 81 18 109/75 96 07/24/22 06:12 07/24/22 06:12 07/24/22 06:12 07/24/22 06:12 07/24/22 06:12 07/24/22 06:12 Preop Diagnosis: History of colon polyps Operation Date: 07/24/22 07:30 Proposed Procedures p Colonoscopy 52881,Z12.11(Not Applicable) - Zeke Perera MD Familial anesthetic complications: none Was Beta Margaret taken within 24 hours: Yes Last intake: Intake Last Liquid Date 07/23/22 Last Liquid Time 22:30 Last Solid Date 07/22/22 Last Solid Time 17:30 Social No tobacco (previous smoker quit about a month ago per patient.) Airway Submandibular: within normal limits Cervical ROM: within normal limits Mallampati: Class II Dentition: false (removed) Pulmonary Sleep Apnea (CPAP compliant) and None reported CV/HEM Arrythmia (tachycardia) and Hypertension Chronic Renal Insufficiency (secondary to DMII) Hepatic Fatty Liver GI Gastroesophageal Reflux Disease Metabolic Diabetes Mellitus (NIDDM) and Morbid Obesity Neuropsych Anxiety and Depression Anesthetic Plan ASA status: 3 Anesthesia: MAC Medications/Allergies Home Medications Medication Instructions Recorded Confirmed Last Taken Type Lactobacillus 1 cap PO .Two Daily 09/15/19 07/22/22 07/23/22 History acidophilus-Bifidobac.animalis 10 billion cell capsule (Digestive Probiotic) acetaminophen 500 mg tablet 1,000 mg PO BID PRN fever or pain 09/15/19 07/22/22 07/23/22 History cholecalciferol (vitamin D3) 50 50 mcg PO BID 09/15/19 07/22/22 07/23/22 History mcg (2,000 unit) capsule vitamin E (dl, acetate) 180 mg 400 unit PO DAILY 09/15/19 07/22/22 07/23/22 History (400 unit) capsule xyyamdlj-ehvzcov-ikji-lutein tablet 1 tab PO DAILY 12/02/21 07/22/22 07/23/22 History pantoprazole 40 mg tablet,delayed 40 mg PO DAILY 30 days #30 tabs 12/04/21 07/22/22 07/23/22 Rx release (Protonix) polyethylene glycol 3350 17 17 g PO DAILY #510 grams 05/23/22 11/16/22 11/17/22 Rx gram/dose oral powder peg 3350-electrolytes 236 240 ml PO Q10M #4,000 mL 05/13/22 07/22/22 07/23/22 Rx gram-22.74 gram-6.74 gram-5.86 gram solution (Golytely) bupropion HCl 150 mg 24 hr tablet, 150 mg PO .morning #30 tabs 05/26/22 07/22/22 07/23/22 Rx extended release quetiapine 300 mg tablet,extended 300 mg PO .7 pm #30 tabs 05/26/22 07/22/22 07/23/22 Rx release 24 hr (Seroquel XR) clonazepam 0.5 mg tablet (Klonopin) 0.5 mg PO TID PRN panic attacks 06/01/22 07/22/22 07/23/22 Rx #90 tabs lactulose 10 gram/15 mL (15 mL) 15 ml PO BID 7 days #210 mL 06/01/22 07/22/22 07/23/22 Rx oral solution albuterol sulfate 90 mcg/actuation 2 puff inhalation QID #9 grams 07/17/22 07/22/22 07/23/22 Rx aerosol inhaler clonidine HCl 0.1 mg tablet 0.1 mg PO .at bedtime #30 tabs 07/17/22 07/22/22 07/23/22 Rx estradiol 0.5 mg tablet (Estrace) 0.5 mg PO DAILY #30 tabs 07/17/22 07/22/22 07/23/22 Rx metoprolol succinate 50 mg 50 mg PO DAILY #30 tabs 07/17/22 07/22/22 07/24/22 Rx tablet,extended release 24 hr (Toprol XL) semaglutide 0.25 mg or 0.5 mg (2 0.25 mg (0.2 mL) SUBCUT .weekly 07/17/22 07/22/22 07/23/22 Rx mg/1.5 mL) subcutaneous pen #1.5 mL injector ([employer]) Allergies Allergy/AdvReac Type Severity Reaction Status Date / Time No Known Allergies Allergy Verified 07/24/22 06:18 Current Medications Generic Name Dose Route Start Last Admin Trade Name Freq PRN Reason Stop Dose Admin Sodium Chloride 1,000 mls @ 30 mls/hr 07/24/22 06:00 07/24/22 06:16 Sodium Chloride 0.9% IV 07/25/22 05:59 30 mls/hr .Q24H DIPAK Administration PFSH Anesthesia Medical History ADD (attention deficit disorder) Chronic migraine Cigarette nicotine dependence CKD stage 3 secondary to diabetes Controlled diabetes mellitus with hyperglycemia, without long-term current use of insulin Current smoker Enrolled in chronic care management Family history of colon cancer in father Generalized anxiety disorder Heart palpitations Hyperlipemia Major depressive disorder, recurrent severe without psychotic features Obesity (BMI 30-39.9) Panic disorder Psychiatric care Vitamin D deficiency Surgical History History of appendectomy History of cholecystectomy History of fusion of cervical spine History of hysterectomy 05/13/2021 History of nephrectomy left History of oophorectomy on right History of tonsillectomy and adenoidectomy History of tubal ligation Family History Father Cancer colon Diabetes Hyperlipidemia Hypertension Mother Bleeding disorder Hypertension Brother CAD (coronary artery disease) Diabetes Hypertension Brother Diabetes Hyperlipidemia Hypertension Denies family history of Chronic kidney disease (CKD) Stroke Social History Smoking and tobacco status: never smoked Second hand smoke exposure: No Smoking risk assessment/counseling performed?: No Alcohol intake: never Desire information about alcohol rehabilitation?: No Counseling given: No Desire information about substance/drug rehabilitation?: No Counseling given: No Adopted: No Caregiver/support person: No Lives independently: Yes Household members: significant other Housing: House Marital status: Number of children: 4 service: No Current occupational status: disabled History of recent travel: No Current gender identity: Female Data Anesthesia Cardiac Studies: No Data to Display
[2022-07-24 07:50] VITALS: BP 132/90; PULSE 73; RESP 14; TEMP 36.2; O2SAT 100
[2022-07-24 08:00] VITALS: BP 142/91; PULSE 72; RESP 16; O2SAT 97
[2022-07-24 08:07] VITALS: BP 134/95; PULSE 73; RESP 16; O2SAT 96
--- NOTE | 2022-07-24 12:40 | ANE.PACU2 ---
Inpatient post-anesthesia follow up: Airway intact: Yes Vital signs: Temperature 97.1 F Pulse Rate 73 Respiratory Rate 16 Blood Pressure 134/95 Pulse Oximetry 96 Oxygen Delivery Me thod Room Air Oxygen Flow Rate 4 Fraction of Inspir ed Oxygen Hydration adequate: Yes Nausea and vomiting: No Pain level: 1 Mental status: Baseline
== END 2022-07-24 08:20 | disposition home or self-care (01) ==
PROVIDERS: PCP Nurse Practitioner; Visit Provider Surgery
PROC: 0DJD8ZZ Inspection of Lower Intestinal Tract, Via Natural or Artificial Opening Endoscopic (ICD-10-PCS; CPT 45378; principal; 2022-07-24 07:30)
DX: Z12.11 Encounter for screening for malignant neoplasm of colon (principal); D12.2 Benign neoplasm of ascending colon; Z86.010 Personal history of colon polyps; G47.30 Sleep apnea, unspecified; K76.0 Fatty (change of) liver, not elsewhere classified; K21.9 Gastro-esophageal reflux disease without esophagitis; E11.9 Type 2 diabetes mellitus without complications; E66.01 Morbid (severe) obesity due to excess calories; Z68.35 Body mass index [BMI] 35.0-35.9, adult; E11.22 Type 2 diabetes mellitus with diabetic chronic kidney disease; I12.9 Hypertensive chronic kidney disease with stage 1 through stage 4 chronic kidney disease, or unspecified chronic kidney disease; N18.30 Chronic kidney disease, stage 3 unspecified; E11.65 Type 2 diabetes mellitus with hyperglycemia; E78.5 Hyperlipidemia, unspecified; F41.9 Anxiety disorder, unspecified
CPT/HCPCS: 36416; 45380; 82962; 88305; J2704; J7030

== ENCOUNTER → 2022-10-09 11:30 | Outpatient (BNVA) | payer MEDICARE, MEDICAID, SELFPAY | PROVIDERS: PCP Nurse Practitioner; Visit Provider Nurse Practitioner | DX: E11.65 Type 2 diabetes mellitus with hyperglycemia (principal) | CPT/HCPCS: 80053; 80061; 83036 ==

== ENCOUNTER 2022-10-30 14:24 | Outpatient (CLI) | payer MEDICARE, MEDICAID, SELFPAY ==
--- NOTE | 2022-10-30 14:32 | MM_ITS ---
WS: [id number] BILATERAL 3D TOMOSYNTHESIS DIGITAL SCREENING MAMMOGRAPHY WITH CAD CLINICAL INFORMATION: Z12.39 - Encounter for other screening for malignant neop... HISTORY: Screening mammogram. No current complaints. COMPARISON: 2020 TECHNIQUE: Bilateral CC and MLO views. FINDINGS: Scattered fibroglandular densities bilaterally. No suspicious focal mass, asymmetry, calcifications, or architectural distortion. No evidence of malignancy. Punctate and lucent centered calcifications. Dystrophic calcifications LEFT breast. MM/[place] [id number] IMPRESSION: BI-RADS: 2-Benign FOLLOW UP: 1 Year Follow-up Recommend return to annual screening mammography.
== END 2022-10-30 14:25 | disposition home or self-care (01) ==
PROVIDERS: PCP Nurse Practitioner; Visit Provider Nurse Practitioner
DX: Z12.31 Encounter for screening mammogram for malignant neoplasm of breast (principal)
CPT/HCPCS: 77063; 77067

== ENCOUNTER → 2023-01-14 16:08 | Outpatient (BNVA) | payer MEDICARE, MEDICAID, OTHER, SELFPAY | PROVIDERS: PCP Nurse Practitioner; Visit Provider Nurse Practitioner | DX: E11.65 Type 2 diabetes mellitus with hyperglycemia (principal); Z79.890 Hormone replacement therapy; R00.2 Palpitations; J30.2 Other seasonal allergic rhinitis | CPT/HCPCS: 80053; 82043; 83036 ==

== ENCOUNTER 2023-03-01 09:29 | Emergency (ER) | payer MEDICARE, MEDICAID, SELFPAY ==
[2023-03-01 09:33] VITALS: BP 164/93; PULSE 85; RESP 16; TEMP 36.7; O2SAT 94; BMI 35.1
--- NOTE | 2023-03-01 09:33 | ECG_ITS ---
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 Measurements Intervals [place] Rate: 83 P: 9 UT: 139 QRS: 29 QRSD: 87 T: 58 QT: 361 QTc: 425 Interpretive Statements SINUS RHYTHM LOW QRS VOLTAGE IN PRECORDIAL LEADS [QRS DEFLECTION < 1.0 mV IN CHEST LEADS] No previous ECG available for comparison Electronically Signed On 03-01-2023 9:38:02 CDT by Deven Felton M.D. [email or web address] [email or web address]/store/[id number]
--- NOTE | 2023-03-01 09:33 | XR_ITS ---
WS: [id number] Exam: XR chest 1V [id number] Date/Time of Exam: 03/01/2023 9:38 AM Reason For Exam: cp Comparison 02/14/2018. The lungs are fully inflated and clear. Normal cardiomediastinal silhouette. No pleural effusions. Re gional bony elements are intact. Fusion hardware in the lower cervical spine. Mild dextroscoliosis of the T-spine. XR/XR chest 1V [id number] IMPRESSION: 1. No acute cardiopulmonary finding.
[2023-03-01 09:40] VITALS: BP 164/93; PULSE 89; RESP 18; O2SAT 94
--- NOTE | 2023-03-01 09:47 | ED_ITS ---
HPI - Chest Pain General: Chief Complaint: Chest Pain Stated Complaint: Cp/ jaw pain Time Seen by Provider: 03/01/23 09:30 Source: patient Mode of arrival: wheelchair Limitations: no limitations History of Present Illness: Patient presents to the emergency department today for evaluation treatment of i ntermittent but recurrent mid chest pain radiating into her mid upper back with radiating pain up into the bilateral jaws. Patient states she noticed onset of symptoms starting last . She reports developing a severe case of what she thought was heartburn though she indicates she does not typically deal with heartburn symptoms. She states episodes are not constant but indicates the episodes are becoming more frequent. She denies any recent illness with cough, congestion, or fever. She has felt some lightheadedness during these episodes but has had no actual syncope. Patient denies any previous history of WI. Chart review shows history and treatment of hypertension, hyperlipidemia, diabetes type 2, and CKD stage III. Patient states she took her morning medications around 6:30 AM. She states this does include an 81 mg aspirin. Review of Systems General: Reports: 10 or more systems reviewed and unremarkable except in HPI and below PFSH ED PFSH: Medical History ADD (attention deficit disorder) Chronic migraine Cigarette nicotine dependence CKD stage 3 secondary to diabetes Controlled diabetes mellitus with hyperglycemia, without long-term current use of insulin Current smoker Enrolled in chronic care management Family history of colon cancer in father Generalized anxiety disorder Heart palpitations Hyperlipemia Major depressive disorder, recurrent severe without psychotic features Obesity (BMI 30-39.9) Panic disorder Psychiatric care Vitamin D deficiency Surgical History History of appendectomy History of cholecystectomy History of fusion of cervical spine History of hysterectomy 05/13/2021 History of nephrectomy left History of oophorectomy on right History of tonsillectomy and adenoidectomy History of tubal ligation Family History Father Cancer colon Diabetes Hyperlipidemia Hypertension Mother Bleeding disorder Hypertension Brother CAD (coronary artery disease) Diabetes Hypertension Brother Diabetes Hyperlipidemia Hypertension Denies family history of Chronic kidney disease (CKD) Stroke Social History (Reviewed 03/01/23 @ 09:50 by PILY Iverson Smoking and tobacco status: never smoked Second hand smoke exposure: No Smoking risk assessment/counseling performed?: No Alcohol intake: never Desire information about alcohol rehabilitation?: No Counseling given: No Substance/Drug Use: never Desire information about substance/drug rehabilitation?: No Counseling given: No Adopted: No Caregiver/support person: No Lives independently: Yes Household members: significant other Housing: House Marital status: Number of children: 4 service: No Current occupational status: disabled Do you think of yourself as: Straight/Heterosexual Current gender identity: Female Physical Exam Const: COMMON NORMALS: patient oriented x3 OTHER: Patient is pleasant, social. Answers her own history. Patient appears in no acute distress and is nontoxic-appearing. Vital signs are stable. Eye: COMMON NORMALS: Equal, round and reactive pupils present, EOMs intact bilaterally, conjunctivae normal and no scleral icterus CONJUNCTIVA: Yes conjunctivae normal PUPIL: Yes Equal, round and reactive pupils present Neck/C-Spine: COMMON NORMALS: full ROM and no meningeal signs Resp: COMMON NORMALS: normal respiratory effort, No retractions and clear to auscultation bilaterally AUSCULTATION: clear to auscultation bilaterally Cardio: COMMON NORMALS: regular rate and regular rhythm RATE: regular rate RHYTHM: regular rhythm GI: COMMON NORMALS: Normal to inspection, nondistended, normoactive bowel sounds present and Soft to palpation PALPATION: Yes Soft to palpation : COMMON NORMALS: Yes no CVA tenderness BLADDER/KIDNEY EXAM: Yes no CVA tenderness Back/Pelvis: COMMON NORMALS: no CVA tenderness, thoracic and lumbar spine normal to inspection and thoraco-lumbar ROM normal Extremity: NARRATIVE EXTREMITY EXAM: Full range of motion to the extremities. Patient is weightbearing and ambulatory here in the emergency department. Neuro: COMMON NORMALS: patient oriented x3, CN's II-XII intact bilaterally, moves all extremities and no focal motor deficits MENINGEAL SIGNS: Yes no meningeal signs Psych: COMMON NORMALS: mental status grossly normal, Normal thought process present, cooperative and speech normal SPEECH: Yes normal speech THOUGHT PROCESS: Normal thought process present Course Vital Signs: Vital signs: Vital Signs Temperature 98.1 F 03/01/23 09:33 Pulse Rate 80 03/01/23 12:30 Respiratory Rate 18 03/01/23 12:30 Blood Pressure 169/105 03/01/23 12:30 Pulse Oximetry 95 03/01/23 12:30 Oxygen Delivery Me thod Room Air 03/01/23 10:55 MDM - Chest Pain Medical Decision Making Patient presents to the ER today for recurrent episodes of mid chest pain radiating into the bilateral jaws and through to the mid upper back. EKG upon arrival revealed no acute signs of any ST elevation but, we did provide patient 243 mg aspirin to be added in addition to her already taken 81 mg aspirin tablet. Initial EKG was shown and discussed with Dr. Holman. Patient's initial lab work returned showing baseline troponin within normal limits. No abnormal thyroid and no signs of anemia. Patient has what appears to be stable CKD today without acute worsening. Patient is a smoker and does take estrogen replacement. She also states that about a year ago she was given 3 months treatment with a PPI after having an upper GI scope revealing redness in inflammation with concerns for reflux. Patient denies any recent surgeries, prolonged travel, or recent bedridden state. Discussed all this with Dr. Holman who recommended treatment similar to that for COPD exacerbation and also a GI cocktail. Patient also had an order put in for IV Protonix given her past history of Protonix use. Reevaluation of the patient indicates no significant change in her discomfort but, patient's resting O2 saturation was noted to have improved. Patient's repeat troponin showed no acute changes. I again spoke with Dr. Holman regarding patient's reevaluation. He still believes best treatment plan would be to address a COPD like exacerbation with Doxy and steroids. We can also treat for musculoskeletal chest pain and have her follow-up with her primary care. I encouraged the patient to start her medications and unfortunately, as she did drive herself here to the ER, is unable to receive any muscle relaxers prior to discharge but, a prescription was provided. Patient was very concerned about her discharge blood pressure as it was 150/100. Patient took her metoprolol this morning as usual. After speaking with Dr. Holman, he agrees that these readings are acute readings and to treat it, has the likelihood of hypotension setting-in is very likely. Discussed with patient that she has received full dose of aspirin. Patient's evaluation today is also showed no acute concerns. Explained to her that she is not been able to be treated for pain very well due to her driving herself but, medication has been provided to her to occupational health physiotherapist at the pharmacy. Encouraged her to occupational health physiotherapist her medications and after approximately 45 minutes to 1 hour after taking her medicine, to recheck her blood pressure readings. We went over signs and sympt oms of facial droop, slurred speech, severe onset headache, visual changes, syncope, change or worsening chest pains, shortness of breath, or vomiting which will need to be seen and reevaluated through the ER. Otherwise, she needs to follow-up with her primary care doctor in approximately 48 hours for general recheck. Patient verbalizes her understanding and agreement to treatment plan. Differential Diagnosis Likely acute respiratory failure and acute myocardial infarction (Arrhythmia, CHF, pulmonary effusion, abnormal thyroid, reflux) Lab Data 03/01/23 09:48 03/01/23 09:48 Radiology Impressions Chest X-Ray 03/01/23 09:33 IMPRESSION: 1. No acute cardiopulmonary finding. Laboratory Results WBC 5.2 10^3/uL (4.0-10.0) 03/01/23 09:48 RBC 4.45 10^6/uL (4.1-5.3) 03/01/23 09:48 Hgb 13.0 g/dL (11.5-15.3) 03/01/23 09:48 Hct 41.0 % (37.0-47.0) 03/01/23 09:48 MCV 92.1 fl (81-99) 03/01/23 09:48 MCH 29.2 pg (28.0-34.0) 03/01/23 09:48 MCHC 31.7 g/dL (30.0-36.0) 03/01/23 09:48 RDW 12.9 % (12.1-15.1) 03/01/23 09:48 Plt Count 139 10^3/cmm (130-400) 03/01/23 09:48 MPV 9.8 fL (7.4-10.4) 03/01/23 09:48 Neut % (Auto) 59.7 % 03/01/23 09:48 Lymph % (Auto) 30.2 % 03/01/23 09:48 [place] % (Auto) 5.7 % 03/01/23 09:48 Eos % (Auto) 3.4 % 03/01/23 09:48 Baso % (Auto) 0.6 % 03/01/23 09:48 Neut # (Auto) 3.13 10^3/uL (1.8-7.7) 03/01/23 09:48 Lymph # (Auto) 1.6 10^3/uL (0.8-4.8) 03/01/23 09:48 [place] # (Auto) 0.3 10^3/uL (0.2-0.9) 03/01/23 09:48 Eos # (Auto) 0.2 10^3/uL (0.0-0.8) 03/01/23 09:48 Baso # (Auto) 0.0 10^3/uL (0.0-0.1) 03/01/23 09:48 Nucleated RBC % (auto) 0 % 03/01/23 09:48 Nucleated RBCs # 0.0 /100WBC 03/01/23 09:48 Sodium 142 mmol/L (136-145) 03/01/23 09:48 Potassium 3.9 mmol/L (3.5-5.1) 03/01/23 09:48 Chloride 109 mmol/L (98-107) H 03/01/23 09:48 Carbon Dioxide 22 mmol/L (22-29) 03/01/23 09:48 Anion Gap 14.9 (5-19) 03/01/23 09:48 BUN 13 mg/dL (6-20) 03/01/23 09:48 Creatinine 1.0 mg/dL (0.5-0.9) H 03/01/23 09:48 GFR Calculation 57.1 mL/min (90-130) L 03/01/23 09:48 Glucose 128 mg/dL (65-115) H 03/01/23 09:48 Calculated Osmolality 296 mOsm/kg (285-295) H 03/01/23 09:48 Calcium 8.4 mg/dL (8.5-10.5) L 03/01/23 09:48 Total Bilirubin 0.2 mg/dL (0.15-1.2) 03/01/23 09:48 AST 26 U/L (0-32) 03/01/23 09:48 ALT 24 U/L (0-33) 03/01/23 09:48 Alkaline Phosphatase 103 U/L (35-105) 03/01/23 09:48 Troponin T Baseline 6 ng/L (0-10) 03/01/23 09:48 Troponin T 120 Minute 6.00 ng/L (0-10) 03/01/23 11:28 Delta Troponin T 0 ABS# (0-10) 03/01/23 11:28 Total Protein 6.5 g/dL (6.6-8.7) L 03/01/23 09:48 Albumin 4.2 g/dL (3.5-5.2) 03/01/23 09:48 Globulin 2.3 g/dL (1.3-4.6) 03/01/23 09:48 TSH 2.48 uIU/mL (0.27-4.20) 03/01/23 09:48 Urine Color Yellow (Yellow) 03/01/23 09:54 Urine Appearance Clear (CLEAR) 03/01/23 09:54 Urine pH 5 (5-7) 03/01/23 09:54 Ur Specific [place] 1.020 (1.005-1.030) 03/01/23 09:54 Urine Protein Trace (Negative) 03/01/23 09:54 Urine Glucose (UA) Norm (Normal) 03/01/23 09:54 Urine Ketones 1+ (Negative) H 03/01/23 09:54 Urine Blood 2+ (Negative) H 03/01/23 09:54 Urine Nitrate Negative (Negative) 03/01/23 09:54 Urine Bilirubin Neg (Negative) 03/01/23 09:54 Urine Urobilinogen Norm mg/dL (Negative) 03/01/23 09:54 Ur Leukocyte Esterase Negative (Negative) 03/01/23 09:54 Urine RBC Rare /hpf (0-2) 03/01/23 09:54 Urine WBC 0-4 /hpf (0-5) H 03/01/23 09:54 Ur Squamous Epith Cells 5-10 /hpf (0-5) H 03/01/23 09:54 Amorphous Sediment Not Reportable 03/01/23 09:54 Urine Bacteria 1+ /hpf (NONE) H 03/01/23 09:54 Urine Mucus Trace /hpf 03/01/23 09:54 Discharge Plan Discharge Patient Disposition: Home Clinical Impression: Chest pain, non-cardiac, Mandibular pain, Pain, upper back Condition: Stable Prescriptions: New doxycycline hyclate 100 mg capsule 100 mg PO BID 7 Days Qty: 14 0RF prednisone 20 mg tablet 20 mg PO BID 5 Days Qty: 10 0RF tizanidine 4 mg tablet 4 mg PO Q6H PRN (Reason: muscle spasticity) Qty: 28 0RF Rx Instructions: do not exceed 3 doses per 24 hrs No Action Digestive Probiotic 10 billion cell capsule 1 cap PO BID acetaminophen 500 mg tablet 1,000 mg PO BID PRN (Reason: fever or pain) cholecalciferol (vitamin D3) 50 mcg (2,000 unit) capsule 50 mcg PO BID vitamin E (dl, acetate) 400 unit capsule 400 unit PO DAILY polyethylene glycol 3350 17 gram/dose powder 17 g PO DAILY Qty: 510 0RF albuterol sulfate 90 mcg/actuation HFA aerosol inhaler 2 puff inhalation QID Qty: 9 2RF acarbose 25 mg tablet 25 mg PO TID Qty: 90 2RF Rx Instructions: take before food estradiol [Estrace] 0.5 mg tablet 0.5 mg PO DAILY Qty: 30 2RF metoprolol succinate [Toprol XL] 50 mg tablet extended release 24 hr 50 mg PO DAILY Qty: 30 2RF clonazepam [Klonopin] 0.5 mg tablet 0.5 mg PO TID PRN (Reason: panic attacks) Qty: 90 3RF Rx Instructions: Take one tablet three times per day as needed for panic attacks dtatomaa-cquokgh-wpao-lutein Tablet 1 tab PO DAILY clonidine HCl 0.1 mg tablet 0.1 mg PO BEDTIME bupropion HCl 150 mg tablet extended release 24 hr 150 mg PO QAM Seroquel XR 300 mg tablet extended release 24 hr 300 mg PO QPM Ozempic 0.25 mg or 0.5 mg(2 mg/1.5 mL) pen injector 2.5 mg SUBCUT .weekly Discharge Orders: Discharge ED (Routine); Ordered 03/01/23 Ordered By: Simona Lou Referrals: Jaz Huston, RADIOLOGY THERAPIST-C [Primary Care Provider] - Discharge Diet: Usual diet Discharge Activity: Increase activity as tolerated Patient Instructions: Chest Pain - Noncardiac Activity Restrictions/Additional Instructions: Your evaluation today reveals no signs of any acute cardiac abnormality. EKG was normal and comparison troponin levels-indicators for potential heart attack, were negative. Chest x-ray showed no signs of any acute heart enlargement and other lab work is generally unremarkable. After speaking to the emergency room physician today, he did want to address lung involvement given the location of your pain. The breathing treatment provided to you actually significantly increased your oxygen saturation. You went from the low 90%'s to the high 90% after your first treatment. He is recommending a treatment course to address potential COPD exacerbation which includes treatment with doxycycline and a round of steroids. I have also prescribed you a muscle relaxer to help with musculoskeletal chest pains. Be aware that this medication does cause sedation and drowsiness which is why we did not provide any to you prior to discharge as you are driving. We want you to follow-up with your primary care provider in a couple of days for recheck. However, if you develop any slurred speech, syncopal episodes, one-sided facial droop, palpitations, change or worsening of your chest pains or vomiting you need to be reevaluated through the emergency department. Stand Alone Forms: Work/School Release Coding Level of Care Code ED Development Officer for Joe Will
[2023-03-01] MEDS: aspirin 81 mg Chew Tablet 162 MG PO (10:01)
[2023-03-01] MEDS: aspirin 81 mg Chew Tablet PO (10:01)
[2023-03-01 10:03] VITALS: BP 164/93; PULSE 85; RESP 18; O2SAT 93
[2023-03-01 10:17] LABS: Basophils % 0.6 %; Eosinophils # 0.2 10^3/uL (0.0-0.8); Eosinophils % 3.4 %; Lymphocytes # 1.6 10^3/uL (0.8-4.8); Lymphocytes % 30.2 %; Mean Corpuscular HGB Conc 31.7 g/dL (30.0-36.0); Mean Corpuscular Hemoglobin 29.2 pg (28.0-34.0); Mean Corpuscular Volume 92.1 fl (81-99); Mean Platelet Volume 9.8 fL (7.4-10.4); Monocytes # 0.3 10^3/uL (0.2-0.9); Monocytes % 5.7 %; Neutrophils # 3.13 10^3/uL (1.8-7.7); Neutrophils % 59.7 %; Nucleated Red Blood Cells % 0 %; Platelet Count 139 10^3/cmm (130-400); Red Blood Count 4.45 10^6/uL (4.1-5.3); Red Cell Distribution Width 12.9 % (12.1-15.1); White Blood Count 5.2 10^3/uL (4.0-10.0)
[2023-03-01 10:32] LABS: Troponin(5th) Baseline 6 ng/L (0-10)
[2023-03-01 10:38] LABS: Alanine Aminotransferase 24 U/L (0-33); Albumin Level 4.2 g/dL (3.5-5.2); Alkaline Phosphatase 103 U/L (35-105); Anion Gap 14.9 (5-19); Aspartate Amino Transferase 26 U/L (0-32); Blood Urea Nitrogen 13 mg/dL (6-20); Calcium 8.4 mg/dL (8.5-10.5); Carbon Dioxide 22 mmol/L (22-29); Chloride 109 mmol/L (98-107); Globulin 2.3 g/dL (1.3-4.6); Glomerular Filtration Rate 57.1 mL/min (90-130); Glucose 128 mg/dL (65-115); Osmolality Calculated 296 mOsm/kg (285-295); Potassium 3.9 mmol/L (3.5-5.1); Sodium 142 mmol/L (136-145); Thyroid Stimulating Hormone 2.48 uIU/mL (0.27-4.20); Total Bilirubin 0.2 mg/dL (0.15-1.2); Total Protein 6.5 g/dL (6.6-8.7)
[2023-03-01 10:49] LABS: Protein Urine Trace (Negative); Urine Appearance Clear (CLEAR); Urine Color Yellow (Yellow); pH Urine 5 (5-7)
[2023-03-01 10:50] LABS: Add Urine Culture? No; Add Urine Microscopic? YES; Bacteria Urine 1+ /hpf; Bilirubin Urine Neg (Negative); Blood Urine 2+ (Negative); Glucose Urine UA Norm (Normal); Ketones Urine 1+ (Negative); Leukocyte Esterase Urine Negative (Negative); Mucus Urine TRACE /hpf; Nitrate Urine Negative (Negative); RBC Urine RARE /hpf (0-2); Urobilinogen Urine Norm (Negative); WBC Urine 0-4 /hpf (0-5)
[2023-03-01] MEDS: lidocaine 2% viscous 15 ML, aluminum-mag hydrox-simethicon 30 ML, sucralfate oral liq 1 GM PO (10:54)
[2023-03-01 10:55] VITALS: PULSE 78; RESP 16; O2SAT 98
[2023-03-01] MEDS: ipratropium-albuterol 3 mL Neb INHALATION (10:56)
[2023-03-01] MEDS: dexamethasone 10 mg/mL INJ IVP (10:58)
[2023-03-01 11:04] VITALS: PULSE 77
--- NOTE | 2023-03-01 11:11 | ECG_ITS ---
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 Measurements Intervals [place] Rate: 76 P: 31 [place]: 148 QRS: 43 QRSD: 85 T: 57 QT: 382 QTc: 430 Interpretive Statements SINUS RHYTHM Compared to ECG 03/01/2023 09:36:19 No significant changes Electronically Signed On 03-01-2023 17:26:43 CDT by Deven Felton M.D. [email or web address] by Southsum[facility] rittman medical centerNVoicePay/store/OM/[id number]
[2023-03-01 11:55] LABS: Troponin 5 2HR Delta 0 ABS# (0-10)
[2023-03-01] MEDS: pantoprazole 40 mg SDV IVP (12:15)
[2023-03-01 12:30] VITALS: BP 169/105; PULSE 80; RESP 18; O2SAT 95
== END 2023-03-01 12:35 | disposition home or self-care (01) ==
PROVIDERS: Emergency Provider Physician Assistant; PCP Nurse Practitioner
DX: R07.89 Other chest pain (principal); R68.84 Jaw pain; M54.6 Pain in thoracic spine; E11.22 Type 2 diabetes mellitus with diabetic chronic kidney disease; N18.30 Chronic kidney disease, stage 3 unspecified; E78.5 Hyperlipidemia, unspecified; Z90.5 Acquired absence of kidney
CPT/HCPCS: 36415; 71045; 80053; 81001; 84443; 84484; 85025; 93005; 94640; 96374; 96375; 99285; C9113; J1100

== ENCOUNTER → 2023-05-28 09:45 | Outpatient (BNVA) | payer MEDICARE, MEDICAID, SELFPAY | PROVIDERS: PCP Nurse Practitioner; Visit Provider Family Medicine | DX: R05.9 Cough, unspecified (principal); U07.1 COVID-19 | CPT/HCPCS: 87426 ==

== ENCOUNTER → 2023-07-12 16:00 | Outpatient (BNVA) | payer MEDICARE, MEDICAID, SELFPAY | PROVIDERS: PCP Nurse Practitioner; Visit Provider Nurse Practitioner | DX: E11.65 Type 2 diabetes mellitus with hyperglycemia (principal); F98.8 Other specified behavioral and emotional disorders with onset usually occurring in childhood and adolescence; Z79.890 Hormone replacement therapy; R00.2 Palpitations; I10 Essential (primary) hypertension; H65.90 Unspecified nonsuppurative otitis media, unspecified ear | CPT/HCPCS: 80053; 83036 ==

== ENCOUNTER → 2023-12-16 14:18 | Outpatient (BNVA) | payer MEDICARE, MEDICAID, SELFPAY | PROVIDERS: PCP Nurse Practitioner; Visit Provider Family Medicine | DX: R50.9 Fever, unspecified (principal); R05.9 Cough, unspecified; N39.0 Urinary tract infection, site not specified | CPT/HCPCS: 81003; 87400; 87426 ==

== ENCOUNTER 2024-01-18 12:46 | Outpatient (CLI) | payer MEDICARE, MEDICAID, SELFPAY ==
--- NOTE | 2024-01-18 13:00 | MM_ITS ---
WS: [id number] BILATERAL 3D TOMOSYNTHESIS DIGITAL SCREENING MAMMOGRAPHY WITH CAD CLINICAL INFORMATION: SCREENING HISTORY: Screening mammogram. Prior benign RIGHT lumpectomy. COMPARISON: 2022 TECHNIQUE: Bilateral CC and MLO views. FINDINGS: Scattered fibroglandular densities bilaterally. No suspicious focal mass, asymmetry, calcifications, or architectural distortion. No evidence of malignancy. Incidental punctate and lucent centered calci fications. RIGHT breast biopsy clip. MM/[place] [id number] IMPRESSION: BI-RADS: 2-Benign FOLLOW UP: 1 Year Follow-up Recommend return to annual screening mammography.
== END 2024-01-18 12:47 | disposition home or self-care (01) ==
LOC: MOBLMAM 12:50
PROVIDERS: PCP Nurse Practitioner; Visit Provider Nurse Practitioner
DX: Z12.31 Encounter for screening mammogram for malignant neoplasm of breast (principal)
CPT/HCPCS: 77063; 77067

== ENCOUNTER → 2024-02-09 16:11 | Outpatient (BNVA) | payer MEDICARE, OTHER, SELFPAY | PROVIDERS: PCP Nurse Practitioner; Visit Provider Nurse Practitioner | DX: E11.9 Type 2 diabetes mellitus without complications (principal); E11.65 Type 2 diabetes mellitus with hyperglycemia | CPT/HCPCS: 80053; 80061; 82043; 82607; 83036 ==

== ENCOUNTER 2024-06-02 15:08 | Outpatient (CLI) | payer MEDICARE, MEDICAID, SELFPAY ==
--- NOTE | 2024-06-02 15:12 | XR_ITS ---
WS: [id number] PA and lateral chest, 06/02/2024 Clinical Data: R05.9 - Cough, unspecified Comparison: Portable chest, 03/01/2023 Findings: No nodules, masses or effusions are seen. The heart is normal. The pulmonary vascularity is unremarkable. No pneumonia or pneumothorax is seen. There is a slight dextroscoliosis of the thoraci c spine. The patient has had an anterior cervical disc fusion. There are cholecystectomy clips in the right upper quadrant. XR/XR chest 2V* [id number] Impression: Negative chest.
[2024-06-02 15:45] LABS: Basophils % 0.6 %; Eosinophils # 0.5 10^3/uL (0.0-0.8); Eosinophils % 6.4 %; Hematocrit 44.9 % (36-47); Lymphocytes # 2.6 10^3/uL (0.8-4.8); Lymphocytes % 35.9 %; Mean Corpuscular HGB Conc 32.3 g/dL (30-55); Mean Corpuscular Hemoglobin 30.9 pg (27-33); Mean Corpuscular Volume 95.5 fl (85-98); Mean Platelet Volume 9.8 fL (7.4-10.4); Monocytes # 0.4 10^3/uL (0.2-0.9); Monocytes % 5.7 %; Neutrophils # 3.68 10^3/uL (1.8-7.7); Nucleated Red Blood Cells % 0 %; Platelet Count 163 10^3/cmm (157-399); Red Cell Distribution Width 12.9 % (12.1-15.1); White Blood Count 7.21 10^3/uL (3.29-11.43)
[2024-06-02 16:03] LABS: Alanine Aminotransferase 32 U/L (0-33); Albumin Level 4.4 g/dL (3.5-5.2); Alkaline Phosphatase 101 U/L (35-105); Aspartate Amino Transferase 36 U/L (0-32); Blood Urea Nitrogen 17 mg/dL (6-20); Calcium 8.9 mg/dL (8.5-10.5); Carbon Dioxide 23 mmol/L (22-29); Chloride 105 mmol/L (98-107); Globulin 3.2 g/dL (1.3-4.6); Glucose 83 mg/dL (65-115); Osmolality Calculated 289 mOsm/kg (285-295); Sodium 139 mmol/L (136-145); Total Bilirubin 0.3 mg/dL (0.15-1.2); Total Protein 7.6 g/dL (6.6-8.7)
[2024-06-02 16:04] LABS: Anion Gap 15.3 (5-19); Potassium 4.3 mmol/L (3.5-5.1)
[2024-06-02 17:45] LABS: Adenovirus Not Detected (NOT DETECT); Chlamydia Pneumoniae Not Detected (NOT DETECT); Coronavirus 229E,HKU1,NL63,OC4 Not Detected (NOT DETECT); Human Metapneumovirus Not Detected (NOT DETECT); Human Rhinovirus/Enterovirus Detected (NOT DETECT); Influenza A Not Detected (NOT DETECT); Influenza A H1 Not Detected (NOT DETECT); Influenza A H1-2009 Not Detected (NOT DETECT); Influenza A H3 Not Detected (NOT DETECT); Influenza B Not Detected (NOT DETECT); Mycoplasma Pneumoniae Not Detected (NOT DETECT); Parainfluenza Virus Type 1 Not Detected (NOT DETECT); Parainfluenza Virus Type 2 Not Detected (NOT DETECT); Parainfluenza Virus Type 3 Not Detected (NOT DETECT); Parainfluenza Virus Type 4 Not Detected (NOT DETECT); Respiratory Syncytial Virus A Not Detected (NOT DETECT); Respiratory Syncytial Virus B Not Detected (NOT DETECT); SARS-COV-2 Not Detected (NOT DETECT)
== END 2024-06-02 15:09 | disposition home or self-care (01) ==
LOC: LAB 15:10
PROVIDERS: PCP Nurse Practitioner; Visit Provider Nurse Practitioner
DX: R05.9 Cough, unspecified (principal); Z90.49 Acquired absence of other specified parts of digestive tract
CPT/HCPCS: 36415; 71046; 80053; 85025; 87486; 87581; 87633

== ENCOUNTER → 2024-10-17 13:22 | Outpatient (BNVA) | payer MEDICAID, SELFPAY | PROVIDERS: PCP Nurse Practitioner; Visit Provider Nurse Practitioner | DX: E11.9 Type 2 diabetes mellitus without complications (principal) | CPT/HCPCS: 80053; 80061; 83036 ==

== ENCOUNTER 2025-01-17 13:01 | Emergency (ER) | payer OTHER, MEDICAID, SELFPAY ==
[2025-01-17 13:09] VITALS: BP 148/97; PULSE 81; RESP 18; TEMP 36.7; O2SAT 94; BMI 32.7
[2025-01-17] MEDS: sodium chloride 0.9% 1,000 ML 999 ML IV (13:48)
[2025-01-17] MEDS: prochlorperazine 10 mg/2 mL Inj 5 MG IVP (13:50)
[2025-01-17] MEDS: diphenhydrAMINE 50 mg/mL SDV 1mL IVP (13:53)
--- NOTE | 2025-01-17 14:05 | ED_ITS ---
HPI - Headache General: Chief Complaint: Headache Stated Complaint: migraine for 3days Time Seen by Provider: 01/17/25 13:09 History of Present Illness: Patient is a pleasant 59-year-old female with history of hypertension, that presents to the emergency room due to headache x 3 days. Home remedies include Excedrin, Tylenol, and rest. Her pain is behind her eyes. She has association of nausea, and photophobia. She has not eaten today. She does endorse taking her metoprolol, and valsartan. This headache is similar to previous headaches, however it has continued on. Associated symptoms: Reports nausea; Deny chest pain, fever(s) or vomiting Related Data Home Medications ?Medication ?Instructions ?Recorded ?Confirmed acetaminophen 500 mg tablet 1,000 mg PO BID PRN fever or pain 09/15/19 01/17/25 gvvblvdp-kaumbcf-lskb-lutein tablet 1 tab PO DAILY 01/17/25 Previous Rx's ?Medication ?Instructions ?Recorded bupropion HCl 300 mg 24 hr tablet, 300 mg PO QAM #30 t abs 09/20/24 extended release (Wellbutrin XL) quetiapine 300 mg tablet,extended 300 mg PO .7 pm #30 tabs 09/20/24 release 24 hr (Seroquel XR) acarbose 50 mg tablet 50 mg PO TID #90 tabs albuterol sulfate 90 mcg/actuation 2 puff inhalation Q ID #9 grams 10/17/24 aerosol inhaler budesonide-formoterol HFA 160 2 puff inhalation Q12H # 10.2 grams 10/17/24 mcg-4.5 mcg/actuation aerosol inhaler (Symbicort) estradiol 0.5 mg tablet (Estrace) 0.5 mg PO DAILY #30 tabs 10/17/24 ipratropium 0.5 mg-albuterol 3 mg 3 ml inhalation QID PRN wheezing 10/17/24 (2.5 mg base)/3 mL nebulization #90 mL soln metoprolol succinate 50 mg 50 mg PO DAILY #30 tabs 07/31 tablet,extended release 24 hr (Toprol XL) nebulizers #1 ea 10/17/24 tirzepatide 2.5 mg/0.5 mL 2.5 mg (0.5 mL) SUBCUT .week ly #2 10/17/24 subcutaneous pen injector mL (Mounjaro) clonazepam 0.5 mg tablet 0.5 mg PO TID PRN panic sabas cks 12/11/24 #90 tabs clonidine HCl 0.1 mg tablet 0.1 mg PO BEDTIME #30 tabs 12/11/24 valsartan 320 mg tablet (Diovan) 320 mg PO DAILY #30 t abs 01/15/25 Allergies Allergy/AdvReac Type Severity Reaction Status Date / Time No Known Allergies Allergy Verified 01/17/25 13:12 Review of Systems General: Reports: 10 or more systems reviewed and unremarkable except in HPI and below Const: Denies: fever(s) or chills Eyes: Denies: change in vision or blurry vision ENMT: Denies: throat pain or odynophagia Card: Denies: chest pain or palpitations Resp: Denies: dyspnea or productive cough GI: Reports: nausea; Denies: abdominal pain or vomiting : Denies: flank pain, difficulty voiding or urinary frequency Musc: Denies: neck pain or back pain Neuro: Reports: headache(s); Denies: numbness in extremities or weakness in extremities Psych: Denies: anxiety or depression PFSH ED PFSH: Medical History Cigarette nicotine dependence ADD (attention deficit disorder) Family history of colon cancer in father Psychiatric care Obesity (BMI 30-39.9) Heart palpitations Controlled diabetes mellitus with hyperglycemia, without long-term current use of insulin Enrolled in chronic care management please do not remove from active list Generalized anxiety disorder Panic disorder Major depressive disorder, recurrent severe without psychotic features Vitamin D deficiency Chronic migraine Hyperlipemia Current smoker CKD stage 3 secondary to diabetes Surgical History History of fusion of cervical spine History of hysterectomy 05/13/2021 History of appendectomy History of cholecystectomy History of nephrectomy left History of tonsillectomy and adenoidectomy History of tubal ligation History of oophorectomy on right Family History Father Cancer colon Diabetes Hyperlipidemia Hypertension Mother Bleeding disorder Hypertension Brother CAD (coronary artery disease) Diabetes Hypertension Brother Diabetes Hyperlipidemia Hypertension Denies family history of Chronic kidney disease (CKD) Stroke Social History Smoking and tobacco/nicotine status: never used tobacco/nicotine Second hand smoke exposure: No Alcohol intake: never Substance/Drug Use: never Adopted: No Caregiver/support person: No Lives independently: Yes Household members: significant other Housing: House Marital status: Number of children: 4 service: No Current occupational status: disabled Do you think of yourself as: Straight/Heterosexual Current gender identity: Female Physical Exam Const: COMMON NORMALS: no acute distress, patient oriented x3 and no limit ations GENERAL APPEARANCE: cooperative ORIENTATION/CONSCIOUSNESS: Yes awake, Yes oriented to person, Yes oriented to place and Yes oriented to time; not confused HENMT: COMMON NORMALS: normocephalic and atraumatic HEAD & SCALP: normocephalic and atraumatic Neck/C-Spine: COMMON NORMALS: no JVD Resp: COMMON NORMALS: normal respiratory effort and clear to auscultation bilaterally EFFORT & INSPECTION: Yes able to speak in complete sentences AUSCULTATION: clear to auscultation bilaterally Cardio: COMMON NORMALS: no JVD, regular rate and regular rhythm RATE: regular rate RHYTHM: regular rhythm GI: COMMON NORMALS: Normal to inspection, nondistended, normoactive bowel sounds present : COMMON NORMALS: Yes no CVA tenderness BLADDER/KIDNEY EXAM: Yes no CVA tenderness Back/Pelvis: COMMON NORMALS: no CVA tenderness Neuro: COMMON NORMALS: patient oriented x3 SENSORIUM/ORIENTATION: Yes oriented to person, Yes oriented to place and Yes oriented to time Psych: COMMON NORMALS: mental status grossly normal, Normal thought process present, cooperative, normal affect, speech normal and activity/motor behavior normal SPEECH: Yes normal speech THOUGHT PROCESS: Normal thought process present Skin: COMMON NORMALS: no rashes or lesions noted and no wounds GENERAL SKIN EXAM: no rashes or lesions noted Course Vital Signs: Vital signs: Vital Signs Temperature 98.0 F 01/17/25 13:09 Pulse Rate 81 01/17/25 13:09 Respiratory Rate 18 01/17/25 13:09 Blood Pressure 148/97 01/17/25 13:09 Pulse Oximetry 94 01/17/25 13:09 Oxygen Delivery Me thod Room Air 01/17/25 13:09 MDM - Headache Medical Decision Making Patient has a current headache, ongoing, similar to previous. There is no reason to obtain CT of her head at this time. Will give IV fluids, and antiemetics and reassess. Patient's blood pressure at triage was 148/97, which I asked the patient if her headache is associated with her blood pressure that is out of control. Patient states that she takes all her medications on a daily basis, and has taken today. She may have worsening hypertension that is ass ociated to her current headaches. Discussed with patient this may be important to follow-up on with her primary care physician to look at additional modalities, and follow a DASH diet. She has not eaten today, so this would not apply with a low-salt recommendation. No radiology studies performed this visit Discharge Plan Discharge Patient Disposition: Home Clinical Impression: Migraine aura, persistent, intractable, Essential hypertension Condition: Stable Prescriptions: No Action acetaminophen 500 mg tablet 1,000 mg PO BID PRN (Reason: fever or pain) quetiapine [Seroquel XR] 300 mg tablet extended release 24 hr 300 mg PO .7 pm Qty: 30 6RF Rx Instructions: Take one tablet at 7 pm bupropion HCl [Wellbutrin XL] 300 mg tablet extended release 24 hr 300 mg PO QAM Qty: 30 6RF Rx Instructions: Take one tablet every morning acarbose 50 mg tablet 50 mg PO TID Qty: 90 2RF Rx Instructions: take before food albuterol sulfate 90 mcg/actuation HFA aerosol inhaler 2 puff inhalation QID Qty: 9 2RF budesonide-formoterol [Symbicort] 160-4.5 mcg/actuation HFA aerosol inhaler 2 puff inhalation Q12H Qty: 10.2 2RF estradiol [Estrace] 0.5 mg tablet 0.5 mg PO DAILY Qty: 30 2RF metoprolol succinate [Toprol XL] 50 mg tablet extended release 24 hr 50 mg PO DAILY Qty: 30 2RF Mounjaro 2.5 mg/0.5 mL pen injector 2.5 mg SUBCUT .weekly Qty: 2 2RF (DME) nebulizers Misc See Rx Instructions .ROUTE .MEDSUPPLY Qty: 1 0RF Rx Instructions: As directed ipratropium-albuterol 0.5 mg-3 mg(2.5 mg base)/3 mL solution for nebulization 3 ml inhalation QID PRN (Reason: wheezing) Qty: 90 2RF clonazepam 0.5 mg tablet 0.5 mg PO TID PRN (Reason: panic attacks) Qty: 90 3RF Rx Instructions: May take one tablet three times per day as needed for panic attacks clonidine HCl 0.1 mg tablet 0.1 mg PO BEDTIME Qty: 30 6RF Rx Instructions: Take one tablet at bedtime valsartan [Diovan] 320 mg tablet 320 mg PO DAILY Qty: 30 0RF rrpubfja-ngiqntm-zrub-lutein Tablet 1 tab PO DAILY Discharge Orders: Discharge Order (Routine); Ordered 01/17/25 Ordered By: Nelli Grimes Discharge ED (Routine); Ordered 01/17/25 Ordered By: Nelli Grimes Referrals: Jaz Huston, MARYC [Primary Care Provider, Family Practice] Discharge Diet: Usual diet Discharge Activity: Resume usual activity Patient Instructions: Acute Headache (ED), DASH Eating Plan (ED) Activity Restrictions/Additional Instructions: As we discussed, follow-up with your primary care provider for concern of the association of your blood pressure worsening and additional blood pressure m edications needed. Tylenol or Ipuprofen for pain Print Language: Sammarinese Coding Level of Care Code ED Cobol Application Developer for Joe Will
[2025-01-17 15:20] VITALS: BP 122/55; PULSE 69; O2SAT 96
== END 2025-01-17 15:21 | disposition home or self-care (01) ==
PROVIDERS: Emergency Provider Physician Assistant; PCP Nurse Practitioner
DX: G43.519 Persistent migraine aura without cerebral infarction, intractable, without status migrainosus (principal); I10 Essential (primary) hypertension; E78.5 Hyperlipidemia, unspecified; E11.22 Type 2 diabetes mellitus with diabetic chronic kidney disease; N18.30 Chronic kidney disease, stage 3 unspecified
CPT/HCPCS: 36415; 96361; 96374; 96375; 99284; J0780; J1200; J7030

== ENCOUNTER → 2025-02-07 14:23 | Outpatient (BNVA) | payer MEDICARE, MEDICAID, SELFPAY | PROVIDERS: PCP Nurse Practitioner; Visit Provider Nurse Practitioner | DX: I10 Essential (primary) hypertension (principal) | CPT/HCPCS: 80053; 82607; 83036; 83735; 85025 ==

== ENCOUNTER 2025-02-20 11:25 | Outpatient (CLI) | payer MEDICARE, MEDICAID, SELFPAY ==
--- NOTE | 2025-02-20 11:30 | MM_ITS ---
WS: [id number] BILATERAL 3D TOMOSYNTHESIS DIGITAL SCREENING MAMMOGRAPHY WITH CAD CLINICAL INFORMATION: Z12.31 - Encounter for screening mammogram for malignant ... HISTORY: Screening mammogram. No current complaints. COMPARISON: 2023 TECHNIQUE: Bilateral CC and MLO views. FINDINGS: Scattered fibroglandular densities bilaterally. No suspicious focal mass, asymmetry, calcifications, or architectural distortion. No evidence of malignancy. Incidental coarse calcifications. MM/MM scr tomosynthesis [id number] IMPRESSION: DENSITY: There are scattered areas of fibroglandular density. BI-RADS: 2 - Benign. FOLLOW UP: 1 Year Follow-up Recommend return to annual screening mammography.
== END 2025-02-20 11:26 | disposition home or self-care (01) ==
PROVIDERS: PCP Nurse Practitioner; Visit Provider Nurse Practitioner
DX: Z12.31 Encounter for screening mammogram for malignant neoplasm of breast (principal); R92.323 Mammographic fibroglandular density, bilateral breasts; R92.1 Mammographic calcification found on diagnostic imaging of breast
CPT/HCPCS: 77063; 77067

== ENCOUNTER → 2025-05-02 14:18 | Outpatient (BNVA) | payer MEDICARE, MEDICAID, SELFPAY | PROVIDERS: PCP Nurse Practitioner; Visit Provider Nurse Practitioner | DX: E55.9 Vitamin D deficiency, unspecified (principal); E11.65 Type 2 diabetes mellitus with hyperglycemia | CPT/HCPCS: 80053; 80061; 81000; 82306; 83036; 84443 ==

== ENCOUNTER → 2025-07-25 15:06 | Outpatient (BNVA) | payer MEDICARE, MEDICAID, SELFPAY | PROVIDERS: PCP Nurse Practitioner; Visit Provider Nurse Practitioner | DX: N39.0 Urinary tract infection, site not specified (principal) | CPT/HCPCS: 81000; 87086 ==